=== PATIENT | male | born 1945 | race Caucasian/White ===

== ENCOUNTER 2022-04-20 01:16 | Inpatient (IN) | payer OTHER ==
[2022-04-20] MEDS ORDERED: PANTOPRAZOLE SODIUM 40 MG VIAL IVPUSH ONE (01:50)
[2022-04-20] MEDS ORDERED: PANTOPRAZOLE SODIUM 80 MG/200 ML BAG IVPB ONE (01:56)
[2022-04-20 02:16] LABS: BASO % 0.3 % (0-2.0); EOS % 0.1 % (0-4.5); HEMATOCRIT 35.4 % (35.4-49); HEMOGLOBIN 12.1 GM/dL (11.7-16.9); LYMPH % 9.8 % (8-40); MCH 33.7 pg (25.7-33.7); MEAN PLT VOLUME 10.1 fl (7.5-11.1); MONO % 2.9 % (3.8-10.2); NEUT % 86.9 % (42.8-82.8); PLATELET COUNT 210 10^3/uL (134-434); RBC 3.58 M/mm3 (4.00-5.60); RDW 13.6 % (11.9-15.9); WHITE BLOOD COUNT 12.8 K/mm3 (4.0-10.0)
[2022-04-20 02:49] LABS: CHLORIDE 100 mmol/L (98-107); SODIUM 136 mmol/L (136-145)
[2022-04-20 02:51] LABS: ALBUMIN 3.7 g/dl (3.4-5.0); CALCIUM 9.2 mg/dL (8.5-10.1); GLUCOSE,RANDOM 162 mg/dL (74-106)
[2022-04-20 02:52] LABS: BLOOD UREA NITROGEN 39.5 mg/dL (7-18)
[2022-04-20 02:54] LABS: CREATININE 1.1 mg/dL (0.55-1.3); SGOT/AST 20 U/L (15-37); SGPT/ALT 29 U/L (13-61)
[2022-04-20 02:55] LABS: INR 1.33 (0.83-1.09); PROTHROMBIN TIME (PATIENT) 15.3 SEC (9.7-13.0)
[2022-04-20 02:56] LABS: BILIRUBIN,TOTAL 1.3 mg/dL (0.2-1); TOT PROT 7.5 g/dl (6.4-8.2)
[2022-04-20 02:57] LABS: ALK PHOS 108 U/L (45-117); LACTIC ACID 2.1 mmol/L (0.4-2.0)
[2022-04-20 02:58] LABS: ACTIVATED PTT 30.4 SECONDS (25.2-36.5)
[2022-04-20] MEDS ORDERED: IBUPROFEN 400 MG TABLET (FP) PO ONE (03:04)
[2022-04-20 03:07] LABS: ANION GAP 10 MMOL/L (8-16); CO2 26 mmol/L (21-32)
[2022-04-20] MEDS ORDERED: PIPERACILLIN/TAZOB 4.5 GM 4.5 GM in DEXTROSE 5%-WATER 100 ML IVPB ONE (03:17)
[2022-04-20] MEDS ORDERED: VANCOMYCIN 1 GM in D5W (PRE-DOCKED) 1,000 MG/250 ML IVPB ONE (03:17)
[2022-04-20] MEDS ORDERED: SODIUM CHLORIDE 0.9% 500 ML INFUS.BAG IV ONE (03:17)
[2022-04-20] MEDS ORDERED: VANCOMYCIN/WATER FOR INJ (PEG) 1,000 MG/200 ML BAG IVPB ONE (03:49)
[2022-04-20] MEDS ORDERED: PIPERACILLIN/TAZOB 4.5 GM 4.5 GM/100 ML BAG IVPB ONE (04:49)
[2022-04-20] MEDS: SODIUM CHLORIDE 1,000 ML IV SCH (04:53)
[2022-04-20 05:48] LABS: MAGNESIUM 2.3 mg/dL (1.8-2.4)
[2022-04-20 05:52] LABS: PHOSPHOROUS 2.9 mg/dL (2.5-4.9)
[2022-04-20] MEDS ORDERED: clonazePAM 0.5 MG TABLET GT PRN (07:10)
[2022-04-20] MEDS: INSULIN SLIDING SCALE (NOVOLOG) 1 VIAL SQ SCH ×4 (07:56→22:19)
[2022-04-20] MEDS ORDERED: PIPERACILLIN/TAZOB 3.375 GM 3.375 GM in DEXTROSE 5%-WATER - 50 ML IVPB SCH (09:00)
[2022-04-20] MEDS ORDERED: PIPERACILLIN/TAZOB 3.375 GM 3.375 GM/50 ML BAG IVPB ONE (09:27)
[2022-04-20] MEDS ORDERED: ASCORBIC ACID 500 MG TABLET (FP) ONE (09:29)
[2022-04-20] MEDS ORDERED: clonazePAM 0.5 MG TABLET ONE (09:29)
[2022-04-20] MEDS ORDERED: CHOLECALCIFEROL (VIT D3) 1,000 UNIT (25 MCG) TABLET ONE (09:29)
[2022-04-20] MEDS: CHOLECALCIFEROL (VIT D SOLUTION) 400 UNIT/1 ML DROPS GT SCH (09:59)
[2022-04-20] MEDS: ASCORBIC ACID 500 MG TABLET (FP) PO SCH (09:59)
[2022-04-20] MEDS ORDERED: FOLIC ACID 1 MG TABLET (FP) GT SCH (10:00)
[2022-04-20] MEDS: CYANOCOBALAMIN 1,000 MCG TABLET (FP) GT SCH (10:46)
[2022-04-20] MEDS ORDERED: PANTOPRAZOLE SODIUM 40 MG VIAL ONE (11:50)
[2022-04-20] MEDS ORDERED: PANTOPRAZOLE SODIUM 40 MG VIAL IVPUSH SCH (12:00)
[2022-04-20 14:53] LABS: BILIRUBIN,DIRECT 0.3 mg/dL (0.0-0.2); IRON SERUM 22 ug/dL (50-175); TOTAL IRON BINDING CAPACITY 302 ug/dL (250-450)
[2022-04-20] MEDS: PIPERACILLIN/TAZOB 3.375 GM 3.375 GM in DEXTROSE 5%-WATER - 50 ML IVPB SCH ×2 (15:07→22:16)
[2022-04-20] MEDS ORDERED: VANCOMYCIN/WATER 1250 MG 1,250 MG/250 ML BAG IVPB SCH (16:00)
[2022-04-20] MEDS ORDERED: VANCOMYCIN/WATER 1,250 MG/250 ML BAG (RESTRICTED TO ID ONLY) IVPB SCH (18:00)
[2022-04-20] MEDS: PANTOPRAZOLE SODIUM 40 MG VIAL IVPUSH SCH (22:17)
[2022-04-21] MEDS: PIPERACILLIN/TAZOB 3.375 GM 3.375 GM in DEXTROSE 5%-WATER - 50 ML IVPB SCH ×4 (02:35→22:54)
[2022-04-21] MEDS ORDERED: VANCOMYCIN/WATER 1250 MG 1,250 MG/250 ML BAG IVPB SCH (04:00)
[2022-04-21] MEDS: SODIUM CHLORIDE 1,000 ML IV SCH (06:35)
[2022-04-21] MEDS: INSULIN SLIDING SCALE (NOVOLOG) 1 VIAL SQ SCH ×4 (06:52→22:55)
[2022-04-21 09:09] LABS: BASO % 0.4 % (0-2.0); HEMATOCRIT 28.2 % (35.4-49); HEMOGLOBIN 9.6 GM/dL (11.7-16.9); LYMPH % 9.1 % (8-40); MCH 34.5 pg (25.7-33.7); MEAN CELL VOLUME 101.4 fl (80-96); MEAN PLT VOLUME 9.5 fl (7.5-11.1); MONO % 4.3 % (3.8-10.2); NEUT % 85.2 % (42.8-82.8); PLATELET COUNT 168 10^3/uL (134-434); RBC 2.79 M/mm3 (4.00-5.60); RDW 13.4 % (11.9-15.9); WHITE BLOOD COUNT 12.3 K/mm3 (4.0-10.0)
[2022-04-21 09:19] LABS: INR 1.26 (0.83-1.09); PROTHROMBIN TIME (PATIENT) 14.5 SEC (9.7-13.0)
[2022-04-21 09:32] LABS: ALBUMIN 3.3 g/dl (3.4-5.0)
[2022-04-21 09:35] LABS: BILIRUBIN,DIRECT 0.5 mg/dL (0.0-0.2)
[2022-04-21 09:37] LABS: BILIRUBIN,TOTAL 1.8 mg/dL (0.2-1); TOT PROT 6.7 g/dl (6.4-8.2)
[2022-04-21 09:38] LABS: BLOOD UREA NITROGEN 25.7 mg/dL (7-18); CALCIUM 8.7 mg/dL (8.5-10.1)
[2022-04-21] MEDS: ASCORBIC ACID 500 MG TABLET (FP) PO SCH (10:49)
[2022-04-21] MEDS: PANTOPRAZOLE SODIUM 40 MG VIAL IVPUSH SCH (10:49)
[2022-04-21] MEDS: CYANOCOBALAMIN 1,000 MCG TABLET (FP) GT SCH (10:49)
[2022-04-21] MEDS: CHOLECALCIFEROL (VIT D SOLUTION) 400 UNIT/1 ML DROPS GT SCH (10:52)
[2022-04-21] MEDS ORDERED: FUROSEMIDE 40 MG/4 ML INJECTABLE VIAL IVPUSH ONE (11:30)
[2022-04-21] MEDS ORDERED: ACETAMINOPHEN 1000 MG/100 ML BAG IVPB ONE (18:23)
[2022-04-22] MEDS: PIPERACILLIN/TAZOB 3.375 GM 3.375 GM in DEXTROSE 5%-WATER - 50 ML IVPB SCH ×4 (02:26→22:09)
[2022-04-22] MEDS ORDERED: ACETAMINOPHEN 1000 MG/100 ML BAG IVPB ONE (05:42)
[2022-04-22] MEDS: INSULIN SLIDING SCALE (NOVOLOG) 1 VIAL SQ SCH ×4 (06:14→22:45)
[2022-04-22] MEDS: PANTOPRAZOLE SODIUM 40 MG VIAL IVPUSH SCH (12:47)
[2022-04-22] MEDS ORDERED: IRON SUCROSE INJECTION 200 MG in SODIUM CHLORIDE 90 ML IVPB ONE (13:00)
[2022-04-22] MEDS: POLYETHYLENE GLYCOL (HEALTHYLAX) 3350 17 GM PACKET GT SCH ×2 (13:19→22:10)
[2022-04-22] MEDS: ASCORBIC ACID 500 MG TABLET (FP) PO SCH (13:19)
[2022-04-22] MEDS: CYANOCOBALAMIN 1,000 MCG TABLET (FP) GT SCH (13:19)
[2022-04-22 13:20] LABS: BASO % 0.5 % (0-2.0); EOS % 2.3 % (0-4.5); HEMATOCRIT 29.3 % (35.4-49); HEMOGLOBIN 10.3 GM/dL (11.7-16.9); LYMPH % 13.5 % (8-40); MCH 34.9 pg (25.7-33.7); MCHC 35.1 g/dl (32.0-35.9); MEAN CELL VOLUME 99.4 fl (80-96); MEAN PLT VOLUME 8.7 fl (7.5-11.1); NEUT % 77.7 % (42.8-82.8); PLATELET COUNT 203 10^3/uL (134-434); RBC 2.95 M/mm3 (4.00-5.60); RDW 13.3 % (11.9-15.9); WHITE BLOOD COUNT 11.2 K/mm3 (4.0-10.0)
[2022-04-22 14:27] LABS: ALBUMIN 3.2 g/dl (3.4-5.0); BILIRUBIN,TOTAL 1.5 mg/dL (0.2-1); CALCIUM 8.9 mg/dL (8.5-10.1); CREATININE 1.1 mg/dL (0.55-1.3); TOT PROT 7.1 g/dl (6.4-8.2)
[2022-04-22] MEDS: CHOLECALCIFEROL (VIT D SOLUTION) 400 UNIT/1 ML DROPS GT SCH (14:51)
[2022-04-23] MEDS: PIPERACILLIN/TAZOB 3.375 GM 3.375 GM in DEXTROSE 5%-WATER - 50 ML IVPB SCH ×4 (02:36→20:41)
[2022-04-23] MEDS: POLYETHYLENE GLYCOL (HEALTHYLAX) 3350 17 GM PACKET GT SCH ×3 (05:31→21:47)
[2022-04-23] MEDS: INSULIN SLIDING SCALE (NOVOLOG) 1 VIAL SQ SCH ×4 (06:26→21:46)
[2022-04-23] MEDS: ASCORBIC ACID 500 MG TABLET (FP) PO SCH (10:00)
[2022-04-23] MEDS ORDERED: IRON SUCROSE INJECTION 200 MG in SODIUM CHLORIDE 90 ML IVPB ONE (10:00)
[2022-04-23] MEDS: CHOLECALCIFEROL (VIT D SOLUTION) 400 UNIT/1 ML DROPS GT SCH (10:00)
[2022-04-23] MEDS: FOLIC ACID 1 MG TABLET (FP) GT SCH (10:00)
[2022-04-23] MEDS: PANTOPRAZOLE SODIUM 40 MG VIAL IVPUSH SCH (10:02)
[2022-04-23] MEDS: CYANOCOBALAMIN 1,000 MCG TABLET (FP) GT SCH (10:05)
[2022-04-24] MEDS: PIPERACILLIN/TAZOB 3.375 GM 3.375 GM in DEXTROSE 5%-WATER - 50 ML IVPB SCH ×4 (02:45→21:19)
[2022-04-24] MEDS: POLYETHYLENE GLYCOL (HEALTHYLAX) 3350 17 GM PACKET GT SCH ×3 (05:30→21:20)
[2022-04-24] MEDS: INSULIN SLIDING SCALE (NOVOLOG) 1 VIAL SQ SCH ×4 (06:42→21:20)
[2022-04-24] MEDS ORDERED: IRON SUCROSE INJECTION 200 MG in SODIUM CHLORIDE 90 ML IVPB ONE (10:00)
[2022-04-24] MEDS: FOLIC ACID 1 MG TABLET (FP) GT SCH (10:18)
[2022-04-24] MEDS: ASCORBIC ACID 500 MG TABLET (FP) PO SCH (10:18)
[2022-04-24] MEDS: PANTOPRAZOLE SODIUM 40 MG VIAL IVPUSH SCH (10:18)
[2022-04-24] MEDS: CHOLECALCIFEROL (VIT D SOLUTION) 400 UNIT/1 ML DROPS GT SCH (10:18)
[2022-04-24] MEDS: CYANOCOBALAMIN 1,000 MCG TABLET (FP) GT SCH (10:18)
[2022-04-25] MEDS: PIPERACILLIN/TAZOB 3.375 GM 3.375 GM in DEXTROSE 5%-WATER - 50 ML IVPB SCH ×4 (02:15→20:47)
[2022-04-25] MEDS: POLYETHYLENE GLYCOL (HEALTHYLAX) 3350 17 GM PACKET GT SCH ×3 (06:28→22:48)
[2022-04-25] MEDS: INSULIN SLIDING SCALE (NOVOLOG) 1 VIAL SQ SCH ×4 (06:29→22:24)
[2022-04-25] MEDS: ASCORBIC ACID 500 MG TABLET (FP) PO SCH (09:08)
[2022-04-25] MEDS: CYANOCOBALAMIN 1,000 MCG TABLET (FP) GT SCH (09:08)
[2022-04-25] MEDS: FOLIC ACID 1 MG TABLET (FP) GT SCH (09:08)
[2022-04-25] MEDS: CHOLECALCIFEROL (VIT D SOLUTION) 400 UNIT/1 ML DROPS GT SCH (09:12)
[2022-04-25] MEDS: PANTOPRAZOLE SODIUM 40 MG VIAL IVPUSH SCH (10:01)
[2022-04-25 11:20] LABS: CALCIUM 8.5 mg/dL (8.5-10.1)
[2022-04-25 11:22] LABS: BLOOD UREA NITROGEN 24.7 mg/dL (7-18)
[2022-04-25 11:24] LABS: CREATININE 0.9 mg/dL (0.55-1.3)
[2022-04-25 11:26] LABS: BILIRUBIN,TOTAL 0.4 mg/dL (0.2-1)
[2022-04-25 12:42] LABS: HEMATOCRIT 28.7 % (35.4-49); HEMOGLOBIN 9.9 GM/dL (11.7-16.9); MCH 34.4 pg (25.7-33.7); MCHC 34.4 g/dl (32.0-35.9); MEAN PLT VOLUME 9.5 fl (7.5-11.1); PLATELET COUNT 230 10^3/uL (134-434); RBC 2.87 M/mm3 (4.00-5.60); RDW 13.3 % (11.9-15.9); WHITE BLOOD COUNT 7.8 K/mm3 (4.0-10.0)
[2022-04-25 13:17] LABS: ANISOCYTOSIS 1+; MACROCYTOSIS 1+
[2022-04-25 15:01] VITALS: BMI 21.9
[2022-04-26] MEDS: PIPERACILLIN/TAZOB 3.375 GM 3.375 GM in DEXTROSE 5%-WATER - 50 ML IVPB SCH ×4 (02:02→20:43)
[2022-04-26] MEDS: POLYETHYLENE GLYCOL (HEALTHYLAX) 3350 17 GM PACKET GT SCH ×3 (05:32→23:17)
[2022-04-26] MEDS: INSULIN SLIDING SCALE (NOVOLOG) 1 VIAL SQ SCH ×4 (06:28→23:17)
[2022-04-26] MEDS: CYANOCOBALAMIN 1,000 MCG TABLET (FP) GT SCH (09:13)
[2022-04-26] MEDS: ASCORBIC ACID 500 MG TABLET (FP) PO SCH (09:14)
[2022-04-26] MEDS: CHOLECALCIFEROL (VIT D SOLUTION) 400 UNIT/1 ML DROPS GT SCH (09:14)
[2022-04-26] MEDS: FOLIC ACID 1 MG TABLET (FP) GT SCH (09:14)
[2022-04-26] MEDS: PANTOPRAZOLE SODIUM 40 MG VIAL IVPUSH SCH (11:21)
[2022-04-27] MEDS: PIPERACILLIN/TAZOB 3.375 GM 3.375 GM in DEXTROSE 5%-WATER - 50 ML IVPB SCH ×2 (02:18→10:43)
[2022-04-27] MEDS: POLYETHYLENE GLYCOL (HEALTHYLAX) 3350 17 GM PACKET GT SCH ×4 (05:25→23:03)
[2022-04-27] MEDS: INSULIN SLIDING SCALE (NOVOLOG) 1 VIAL SQ SCH ×4 (06:24→23:04)
[2022-04-27] MEDS: CYANOCOBALAMIN 1,000 MCG TABLET (FP) GT SCH (10:49)
[2022-04-27] MEDS: FOLIC ACID 1 MG TABLET (FP) GT SCH (10:49)
[2022-04-27] MEDS: ASCORBIC ACID 500 MG TABLET (FP) PO SCH (10:49)
[2022-04-27] MEDS: CHOLECALCIFEROL (VIT D SOLUTION) 400 UNIT/1 ML DROPS GT SCH (10:51)
[2022-04-27] MEDS: FAMOTIDINE 40 MG/5 ML ORAL SUSPENSION GT SCH ×2 (15:24→23:04)
[2022-04-27] MEDS ORDERED: LORazepam 0.5 MG TABLET GT ONE (21:54)
[2022-04-28] MEDS: INSULIN SLIDING SCALE (NOVOLOG) 1 VIAL SQ SCH ×2 (06:27→12:07)
[2022-04-28] MEDS: POLYETHYLENE GLYCOL (HEALTHYLAX) 3350 17 GM PACKET GT SCH (06:27)
[2022-04-28] MEDS: CYANOCOBALAMIN 1,000 MCG TABLET (FP) GT SCH (09:17)
[2022-04-28] MEDS: ASCORBIC ACID 500 MG TABLET (FP) PO SCH (09:17)
[2022-04-28] MEDS: FOLIC ACID 1 MG TABLET (FP) GT SCH (09:18)
[2022-04-28] MEDS: CHOLECALCIFEROL (VIT D SOLUTION) 400 UNIT/1 ML DROPS GT SCH (09:18)
[2022-04-28] MEDS: FAMOTIDINE 40 MG/5 ML ORAL SUSPENSION GT SCH (09:18)
[2022-04-28 12:08] VITALS: BP 118/64; PULSE 60; RESP 16; TEMP 97.8
== END 2022-04-28 12:00 | DRG 207 ==
LOC: JER 01:16 → JERBED 06:17 → J5S 12:50
PROVIDERS: ADMIT Internal Medicine; ATTEND Family Medicine
PROC: 5A1955Z Respiratory Ventilation, Greater than 96 Consecutive Hours (ICD-10-PCS; principal; 2022-04-20)
DX: J18.9 Pneumonia, unspecified organism (principal); R53.2 Functional quadriplegia; J96.10 Chronic respiratory failure, unspecified whether with hypoxia or hypercapnia; K92.0 Hematemesis; E11.9 Type 2 diabetes mellitus without complications; I25.10 Atherosclerotic heart disease of native coronary artery without angina pectoris; I69.391 Dysphagia following cerebral infarction; R13.10 Dysphagia, unspecified; J44.9 Chronic obstructive pulmonary disease, unspecified; Z93.0 Tracheostomy status; Z93.1 Gastrostomy status; F03.90 Unspecified dementia, unspecified severity, without behavioral disturbance, psychotic disturbance, mood disturbance, and anxiety; G40.909 Epilepsy, unspecified, not intractable, without status epilepticus; F41.9 Anxiety disorder, unspecified; Z87.820 Personal history of traumatic brain injury; I11.0 Hypertensive heart disease with heart failure; I50.9 Heart failure, unspecified; K59.00 Constipation, unspecified; D53.9 Nutritional anemia, unspecified; D50.9 Iron deficiency anemia, unspecified
CPT/HCPCS: 0241U-QW; 36415; 71045-TC-FY; 74176-TC; 80048; 80053; 80076; 82248; 82553; 82607; 82728; 82746; 82962; 83540; 83550; 83605; 83735; 84100; 84484; 85025; 85610; 85730; 86704; 86850; 86900; 86901; 87040; 87070; 87186; 87205; 87340; 87517; 93005; 93010; 94002; 99285-25; C9803-CS; J1756; U0003; U0005

== ENCOUNTER 2022-06-17 09:56 | Inpatient (IN) | payer OTHER ==
[2022-06-17 10:26] VITALS: BMI 20.7
[2022-06-17 11:09] LABS: VENOUS BASE EXCESS 2.6 mmol/L (-2-2); VENOUS O2 SATURATION 34.2 % (70-80); VENOUS PCO2 49.2 mmHg (38-52); VENOUS PH 7.378 (7.310-7.410)
[2022-06-17 11:15] LABS: BASO % 0.5 % (0-2.0); EOS % 0.1 % (0-4.5); HEMATOCRIT 30.1 % (35.4-49); HEMOGLOBIN 10.1 GM/dL (11.7-16.9); MCH 33.6 pg (25.7-33.7); MCHC 33.4 g/dl (32.0-35.9); MEAN CELL VOLUME 100.8 fl (80-96); MEAN PLT VOLUME 8.5 fl (7.5-11.1); MONO % 10.7 % (3.8-10.2); NEUT % 67.7 % (42.8-82.8); PLATELET COUNT 281 10^3/uL (134-434); RBC 2.99 M/mm3 (4.00-5.60); RDW 14.3 % (11.9-15.9); WHITE BLOOD COUNT 7.5 K/mm3 (4.0-10.0)
[2022-06-17 11:25] LABS: EPI CELLS >36 /uL (0-25.1); HYALINE CASTS 9 /uL (0-3.1); PH,URINE 6.5 (5.0-8.0); URINE APPEARANCE CLOUDY; URINE BACTERIA 58 /uL (0-1359); URINE BILIRUBIN NEGATIVE (NEGATIVE); URINE COLOR YELLOW; URINE GLUCOSE (UA) NEGATIVE (NEGATIVE); URINE KETONE TRACE (NEGATIVE); URINE LEUK ESTERASE TRACE (NEGATIVE); URINE NITRITE NEGATIVE (NEGATIVE); URINE PROTEIN 3+ (NEGATIVE); URINE WBC 75 /uL (0-25.8)
[2022-06-17 11:28] LABS: INR 1.25 (0.83-1.09); PROTHROMBIN TIME (PATIENT) 14.4 SEC (9.7-13.0)
[2022-06-17 11:31] LABS: ACTIVATED PTT 31.3 SECONDS (25.2-36.5)
[2022-06-17 11:47] LABS: CALCIUM 8.6 mg/dL (8.5-10.1)
[2022-06-17 11:48] LABS: ALBUMIN 2.8 g/dl (3.4-5.0); BLOOD UREA NITROGEN 40.4 mg/dL (7-18)
[2022-06-17 11:51] LABS: CREATININE 1.4 mg/dL (0.55-1.3)
[2022-06-17 11:52] LABS: TOT PROT 7.9 g/dl (6.4-8.2)
[2022-06-17 11:53] LABS: BILIRUBIN,TOTAL 0.5 mg/dL (0.2-1)
[2022-06-17 12:20] LABS: URINE RBC 1898 /uL (0-23.9)
[2022-06-17] MEDS ORDERED: ACETAMINOPHEN INJECTION 100 ML IVPB ONE (14:23)
[2022-06-17] MEDS ORDERED: ACETAMINOPHEN 1000 MG/100 ML BAG IVPB ONE (14:31)
[2022-06-17] MEDS ORDERED: PANTOPRAZOLE SODIUM 40 MG/100 ML BAG IVPB ONE ×2 (17:15→21:08)
[2022-06-17] MEDS: SODIUM CHLORIDE 1,000 ML IV SCH (17:21)
[2022-06-17] MEDS: PANTOPRAZOLE SODIUM 40 MG VIAL IVPUSH SCH ×2 (17:21→21:19)
[2022-06-17] MEDS ORDERED: ACETAMINOPHEN 1000 MG/100 ML BAG IVPB PRN (18:34)
[2022-06-17] MEDS ORDERED: propRANOLol HCL 10 MG TABLET ONE (21:08)
[2022-06-17] MEDS: INSULIN SLIDING SCALE (NOVOLOG) 1 VIAL SQ SCH (21:24)
[2022-06-18] MEDS: propRANOLol HCL 10 MG TABLET GT SCH ×3 (06:33→21:06)
[2022-06-18 08:45] LABS: BASO % 0.5 % (0-2.0); EOS % 0.2 % (0-4.5); HEMATOCRIT 27.9 % (35.4-49); HEMOGLOBIN 9.6 GM/dL (11.7-16.9); LYMPH % 28.8 % (8-40); MCH 34.4 pg (25.7-33.7); MCHC 34.2 g/dl (32.0-35.9); MEAN CELL VOLUME 100.5 fl (80-96); MEAN PLT VOLUME 9.1 fl (7.5-11.1); MONO % 9.5 % (3.8-10.2); PLATELET COUNT 266 10^3/uL (134-434); RBC 2.78 M/mm3 (4.00-5.60); RDW 14.2 % (11.9-15.9); WHITE BLOOD COUNT 7.2 K/mm3 (4.0-10.0)
[2022-06-18] MEDS: INSULIN SLIDING SCALE (NOVOLOG) 1 VIAL SQ SCH ×4 (09:01→21:06)
[2022-06-18] MEDS: PANTOPRAZOLE SODIUM 40 MG VIAL IVPUSH SCH ×2 (09:07→21:06)
[2022-06-18] MEDS ORDERED: PANTOPRAZOLE SODIUM 40 MG VIAL ONE (09:08)
[2022-06-18 09:10] LABS: ALBUMIN 2.6 g/dl (3.4-5.0); CALCIUM 8.8 mg/dL (8.5-10.1)
[2022-06-18 09:11] LABS: BLOOD UREA NITROGEN 32.7 mg/dL (7-18); MAGNESIUM 2.4 mg/dL (1.8-2.4)
[2022-06-18 09:13] LABS: CREATININE 1.2 mg/dL (0.55-1.3)
[2022-06-18 09:14] LABS: PHOSPHOROUS 4.6 mg/dL (2.5-4.9)
[2022-06-18 09:15] LABS: BILIRUBIN,TOTAL 0.4 mg/dL (0.2-1); TOT PROT 7.4 g/dl (6.4-8.2)
[2022-06-18] MEDS ORDERED: propRANOLol HCL 10 MG TABLET ONE (13:46)
[2022-06-18] MEDS: SODIUM CHLORIDE 1,000 ML IV SCH (17:41)
[2022-06-19] MEDS: propRANOLol HCL 10 MG TABLET GT SCH ×3 (05:46→21:27)
[2022-06-19] MEDS: INSULIN SLIDING SCALE (NOVOLOG) 1 VIAL SQ SCH ×4 (06:52→21:27)
[2022-06-19 08:11] LABS: BASO % 0.4 % (0-2.0); EOS % 0.6 % (0-4.5); HEMATOCRIT 26.9 % (35.4-49); HEMOGLOBIN 9.1 GM/dL (11.7-16.9); LYMPH % 30.2 % (8-40); MCH 33.9 pg (25.7-33.7); MCHC 33.8 g/dl (32.0-35.9); MEAN CELL VOLUME 100.2 fl (80-96); MEAN PLT VOLUME 8.4 fl (7.5-11.1); MONO % 8.4 % (3.8-10.2); NEUT % 60.4 % (42.8-82.8); PLATELET COUNT 232 10^3/uL (134-434); RBC 2.68 M/mm3 (4.00-5.60); RDW 14.2 % (11.9-15.9); WHITE BLOOD COUNT 4.5 K/mm3 (4.0-10.0)
[2022-06-19 08:25] LABS: CALCIUM 8.6 mg/dL (8.5-10.1)
[2022-06-19 08:26] LABS: ALBUMIN 2.6 g/dl (3.4-5.0)
[2022-06-19 08:31] LABS: BILIRUBIN,TOTAL 0.4 mg/dL (0.2-1)
[2022-06-19] MEDS: PANTOPRAZOLE SODIUM 40 MG VIAL IVPUSH SCH ×2 (09:30→21:27)
[2022-06-19] MEDS: ERTAPENEM SODIUM 1 GM in SODIUM CHLORIDE 50 ML IVPB SCH (14:32)
[2022-06-19] MEDS ORDERED: REMDESIVIR 200 MG in SODIUM CHLORIDE 250 ML IVPB ONE (15:00)
[2022-06-19] MEDS: SODIUM CHLORIDE 1,000 ML IV SCH (16:46)
[2022-06-19] MEDS: POLYETHYLENE GLYCOL (HEALTHYLAX) 3350 17 GM PACKET PEG SCH (21:26)
[2022-06-20] MEDS: INSULIN SLIDING SCALE (NOVOLOG) 1 VIAL SQ SCH ×4 (06:06→21:18)
[2022-06-20] MEDS: propRANOLol HCL 10 MG TABLET GT SCH ×3 (06:06→21:18)
[2022-06-20] MEDS: POLYETHYLENE GLYCOL (HEALTHYLAX) 3350 17 GM PACKET PEG SCH ×2 (10:15→21:18)
[2022-06-20] MEDS: PANTOPRAZOLE SODIUM 40 MG VIAL IVPUSH SCH ×2 (10:15→21:19)
[2022-06-20] MEDS: ERTAPENEM SODIUM 1 GM in SODIUM CHLORIDE 50 ML IVPB SCH (10:16)
[2022-06-20] MEDS: REMDESIVIR 100 MG in SODIUM CHLORIDE 250 ML IVPB SCH (15:14)
[2022-06-20] MEDS ORDERED: ACETAMINOPHEN 1000 MG/100 ML BAG IVPB PRN (17:59)
[2022-06-20] MEDS: SODIUM CHLORIDE 1,000 ML IV SCH (19:42)
[2022-06-21] MEDS: INSULIN SLIDING SCALE (NOVOLOG) 1 VIAL SQ SCH ×4 (05:59→21:55)
[2022-06-21] MEDS: propRANOLol HCL 10 MG TABLET GT SCH ×3 (05:59→21:54)
[2022-06-21] MEDS: PANTOPRAZOLE SODIUM 40 MG VIAL IVPUSH SCH (09:08)
[2022-06-21] MEDS: POLYETHYLENE GLYCOL (HEALTHYLAX) 3350 17 GM PACKET PEG SCH ×2 (09:08→21:54)
[2022-06-21] MEDS: ERTAPENEM SODIUM 1 GM in SODIUM CHLORIDE 50 ML IVPB SCH (10:08)
[2022-06-21] MEDS: REMDESIVIR 100 MG in SODIUM CHLORIDE 250 ML IVPB SCH (14:16)
[2022-06-21] MEDS: SODIUM CHLORIDE 1,000 ML IV SCH (23:37)
[2022-06-22] MEDS: INSULIN SLIDING SCALE (NOVOLOG) 1 VIAL SQ SCH ×4 (06:33→23:05)
[2022-06-22] MEDS: propRANOLol HCL 10 MG TABLET GT SCH ×3 (06:56→22:00)
[2022-06-22] MEDS: POLYETHYLENE GLYCOL (HEALTHYLAX) 3350 17 GM PACKET PEG SCH ×2 (09:47→22:00)
[2022-06-22] MEDS: PANTOPRAZOLE SODIUM 40 MG VIAL IVPUSH SCH (09:47)
[2022-06-22] MEDS ORDERED: INSULIN (NOVOLOG) ASPART 100 UNITS/ML 10ML VIAL ONE (10:36)
[2022-06-22] MEDS: ERTAPENEM SODIUM 1 GM in SODIUM CHLORIDE 50 ML IVPB SCH (12:35)
[2022-06-22] MEDS: SODIUM CHLORIDE 1,000 ML IV SCH (12:35)
[2022-06-22 16:42] LABS: BASO % 0.2 % (0-2.0); EOS % 2.2 % (0-4.5); HEMATOCRIT 25.4 % (35.4-49); HEMOGLOBIN 8.6 GM/dL (11.7-16.9); LYMPH % 35.9 % (8-40); MCH 33.3 pg (25.7-33.7); MCHC 33.8 g/dl (32.0-35.9); MEAN CELL VOLUME 98.5 fl (80-96); MEAN PLT VOLUME 8.2 fl (7.5-11.1); MONO % 6.5 % (3.8-10.2); NEUT % 55.2 % (42.8-82.8); PLATELET COUNT 228 10^3/uL (134-434); RBC 2.58 M/mm3 (4.00-5.60); RDW 13.9 % (11.9-15.9); WHITE BLOOD COUNT 5.6 K/mm3 (4.0-10.0)
[2022-06-22 17:11] LABS: CALCIUM 7.8 mg/dL (8.5-10.1)
[2022-06-22 17:12] LABS: BLOOD UREA NITROGEN 18.4 mg/dL (7-18)
[2022-06-22 17:15] LABS: CREATININE 0.7 mg/dL (0.55-1.3)
[2022-06-23] MEDS: INSULIN SLIDING SCALE (NOVOLOG) 1 VIAL SQ SCH ×4 (06:56→23:26)
[2022-06-23] MEDS: propRANOLol HCL 10 MG TABLET GT SCH ×3 (06:56→22:00)
[2022-06-23 07:12] LABS: BASO % 0.3 % (0-2.0); EOS % 1.9 % (0-4.5); HEMATOCRIT 26.2 % (35.4-49); HEMOGLOBIN 8.8 GM/dL (11.7-16.9); LYMPH % 29.7 % (8-40); MCHC 33.7 g/dl (32.0-35.9); MEAN CELL VOLUME 98.1 fl (80-96); MONO % 5.8 % (3.8-10.2); NEUT % 62.3 % (42.8-82.8); PLATELET COUNT 262 10^3/uL (134-434); RBC 2.67 M/mm3 (4.00-5.60); RDW 13.9 % (11.9-15.9); WHITE BLOOD COUNT 6.7 K/mm3 (4.0-10.0)
[2022-06-23 07:37] LABS: BLOOD UREA NITROGEN 13.9 mg/dL (7-18); CALCIUM 8.2 mg/dL (8.5-10.1)
[2022-06-23 07:40] LABS: PHOSPHOROUS 3.1 mg/dL (2.5-4.9)
[2022-06-23 07:41] LABS: CREATININE 0.7 mg/dL (0.55-1.3)
[2022-06-23] MEDS: POLYETHYLENE GLYCOL (HEALTHYLAX) 3350 17 GM PACKET PEG SCH ×2 (09:18→22:00)
[2022-06-23] MEDS: PANTOPRAZOLE SODIUM 40 MG VIAL IVPUSH SCH (09:18)
[2022-06-23] MEDS: ERTAPENEM SODIUM 1 GM in SODIUM CHLORIDE 50 ML IVPB SCH (09:18)
[2022-06-23] MEDS: SODIUM CHLORIDE 1,000 ML IV SCH (17:00)
[2022-06-24] MEDS: propRANOLol HCL 10 MG TABLET GT SCH ×3 (06:22→22:00)
[2022-06-24] MEDS: INSULIN SLIDING SCALE (NOVOLOG) 1 VIAL SQ SCH ×4 (06:23→22:22)
[2022-06-24] MEDS: POLYETHYLENE GLYCOL (HEALTHYLAX) 3350 17 GM PACKET PEG SCH ×3 (07:08→22:23)
[2022-06-24 07:21] LABS: BASO % 0.3 % (0-2.0); EOS % 2.1 % (0-4.5); HEMOGLOBIN 9.1 GM/dL (11.7-16.9); MCH 33.4 pg (25.7-33.7); MCHC 33.7 g/dl (32.0-35.9); MEAN CELL VOLUME 98.9 fl (80-96); MEAN PLT VOLUME 8.5 fl (7.5-11.1); MONO % 4.4 % (3.8-10.2); NEUT % 69.2 % (42.8-82.8); PLATELET COUNT 291 10^3/uL (134-434); RBC 2.73 M/mm3 (4.00-5.60); RDW 13.8 % (11.9-15.9); WHITE BLOOD COUNT 6.5 K/mm3 (4.0-10.0)
[2022-06-24 07:41] LABS: BLOOD UREA NITROGEN 12.2 mg/dL (7-18); CALCIUM 8.1 mg/dL (8.5-10.1); MAGNESIUM 2.1 mg/dL (1.8-2.4)
[2022-06-24 07:42] LABS: ALBUMIN 2.6 g/dl (3.4-5.0)
[2022-06-24 07:45] LABS: CREATININE 0.8 mg/dL (0.55-1.3)
[2022-06-24 07:46] LABS: BILIRUBIN,TOTAL 0.4 mg/dL (0.2-1)
[2022-06-24] MEDS: AMINO ACIDS/PROTEIN HYDROLYS 30 ML LIQUID.PKT PO SCH (08:40)
[2022-06-24] MEDS: ERTAPENEM SODIUM 1 GM in SODIUM CHLORIDE 50 ML IVPB SCH (09:50)
[2022-06-24] MEDS: PANTOPRAZOLE SODIUM 40 MG VIAL IVPUSH SCH (09:50)
[2022-06-24] MEDS: ASCORBIC ACID 500 MG TABLET (FP) PO SCH (09:50)
[2022-06-25] MEDS: propRANOLol HCL 10 MG TABLET GT SCH ×3 (05:57→22:00)
[2022-06-25] MEDS: INSULIN SLIDING SCALE (NOVOLOG) 1 VIAL SQ SCH ×4 (06:05→22:06)
[2022-06-25 07:32] LABS: BASO % 0.8 % (0-2.0); EOS % 3.1 % (0-4.5); HEMATOCRIT 28.2 % (35.4-49); HEMOGLOBIN 9.6 GM/dL (11.7-16.9); MCH 34.2 pg (25.7-33.7); MCHC 33.9 g/dl (32.0-35.9); MEAN CELL VOLUME 100.6 fl (80-96); MEAN PLT VOLUME 9.6 fl (7.5-11.1); MONO % 7.4 % (3.8-10.2); NEUT % 63.7 % (42.8-82.8); PLATELET COUNT 192 10^3/uL (134-434); WHITE BLOOD COUNT 5.6 K/mm3 (4.0-10.0)
[2022-06-25 07:52] LABS: ALBUMIN 2.4 g/dl (3.4-5.0); CALCIUM 8.3 mg/dL (8.5-10.1)
[2022-06-25 07:53] LABS: BLOOD UREA NITROGEN 12.4 mg/dL (7-18)
[2022-06-25 07:55] LABS: CREATININE 0.7 mg/dL (0.55-1.3); PHOSPHOROUS 3.1 mg/dL (2.5-4.9)
[2022-06-25 07:57] LABS: BILIRUBIN,TOTAL 0.4 mg/dL (0.2-1); TOT PROT 6.8 g/dl (6.4-8.2)
[2022-06-25] MEDS: ERTAPENEM SODIUM 1 GM in SODIUM CHLORIDE 50 ML IVPB SCH (10:25)
[2022-06-25] MEDS: ASCORBIC ACID 500 MG TABLET (FP) PO SCH (10:25)
[2022-06-25] MEDS: POLYETHYLENE GLYCOL (HEALTHYLAX) 3350 17 GM PACKET PEG SCH ×2 (10:25→22:00)
[2022-06-25] MEDS: AMINO ACIDS/PROTEIN HYDROLYS 30 ML LIQUID.PKT PO SCH (10:26)
[2022-06-25] MEDS: PANTOPRAZOLE SODIUM 40 MG VIAL IVPUSH SCH (10:26)
[2022-06-25] MEDS: SODIUM CHLORIDE 1,000 ML IV SCH (10:27)
[2022-06-25 21:59] VITALS: BP 133/72; PULSE 89; TEMP 97.1
[2022-06-25 22:09] VITALS: RESP 12
== END 2022-06-25 23:00 | DRG 207 ==
LOC: JER 09:56 → JERBED 12:08 → OBSVTOIN 16:55 → J2W 06-18 17:34 → J5S 06-25 08:41
PROVIDERS: ADMIT Internal Medicine
PROC: 5A1955Z Respiratory Ventilation, Greater than 96 Consecutive Hours (ICD-10-PCS; principal; 2022-06-17)
PROC: XW033E5 Introduction of Remdesivir Anti-infective into Peripheral Vein, Percutaneous Approach, New Technology Group 5 (ICD-10-PCS; 2022-06-17)
DX: U07.1 COVID-19 (principal); J96.21 Acute and chronic respiratory failure with hypoxia; G91.2 (Idiopathic) normal pressure hydrocephalus; K92.2 Gastrointestinal hemorrhage, unspecified; J44.1 Chronic obstructive pulmonary disease with (acute) exacerbation; N39.0 Urinary tract infection, site not specified; Z99.11 Dependence on respirator [ventilator] status; Z16.12 Extended spectrum beta lactamase (ESBL) resistance; Z93.1 Gastrostomy status; Z93.0 Tracheostomy status; I25.10 Atherosclerotic heart disease of native coronary artery without angina pectoris; I10 Essential (primary) hypertension; E11.9 Type 2 diabetes mellitus without complications; L89.612 Pressure ulcer of right heel, stage 2; B96.20 Unspecified Escherichia coli [E. coli] as the cause of diseases classified elsewhere
CPT/HCPCS: 0241U-QW; 36415; 71045-TC-FY; 74174-TC; 80048; 80053; 81003; 82272; 82728; 82803; 82962; 83540; 83550; 83605; 83735; 84100; 84484; 85025; 85045; 85610; 85730; 86850; 86900; 86901; 87040; 87086; 87186; 93005; 93010; 94002; 99285-25; C9399; C9803-CS; G0378; U0003; U0005

== ENCOUNTER 2022-08-08 09:30 | Observation (INO) | payer OTHER ==
[2022-08-08 09:45] VITALS: BMI 20.5
[2022-08-08] MEDS ORDERED: VANCOMYCIN 1 GM in D5W (PRE-DOCKED) 1,000 MG/250 ML IVPB ONE (10:26)
[2022-08-08] MEDS ORDERED: PIPERACILLIN/TAZOB 2.25 GM 2.25 GM in DEXTROSE 5%-WATER - 50 ML IVPB ONE (10:26)
[2022-08-08] MEDS ORDERED: VANCOMYCIN/WATER FOR INJ (PEG) 1,000 MG/200 ML BAG IVPB ONE (10:53)
[2022-08-08] MEDS ORDERED: PIPERACILLIN/TAZOB 2.25 GM 2.25 GM/50 ML BAG IVPB ONE (10:53)
[2022-08-08 11:15] LABS: BASO % 0.3 % (0-2.0); EOS % 1.1 % (0-4.5); HEMATOCRIT 33.4 % (35.4-49); HEMOGLOBIN 11.2 GM/dL (11.7-16.9); LYMPH % 13.4 % (8-40); MCH 33.4 pg (25.7-33.7); MCHC 33.6 g/dl (32.0-35.9); MEAN CELL VOLUME 99.4 fl (80-96); MEAN PLT VOLUME 9.2 fl (7.5-11.1); MONO % 3.8 % (3.8-10.2); NEUT % 81.4 % (42.8-82.8); PLATELET COUNT 284 10^3/uL (134-434); RBC 3.36 M/mm3 (4.00-5.60); RDW 15.1 % (11.9-15.9); WHITE BLOOD COUNT 9.3 K/mm3 (4.0-10.0)
[2022-08-08 11:21] LABS: INR 1.15 (0.83-1.09); PROTHROMBIN TIME (PATIENT) 13.3 SEC (9.7-13.0)
[2022-08-08 11:24] LABS: ACTIVATED PTT 34.9 SECONDS (25.2-36.5)
[2022-08-08 11:41] LABS: CALCIUM 9.6 mg/dL (8.5-10.1)
[2022-08-08 11:43] LABS: ALBUMIN 3.4 g/dl (3.4-5.0); BLOOD UREA NITROGEN 47.8 mg/dL (7-18); CO2 31 mmol/L (21-32); GLUCOSE,RANDOM 123 mg/dL (74-106)
[2022-08-08 11:45] LABS: CREATININE 1.3 mg/dL (0.55-1.3); SGOT/AST 104 U/L (15-37)
[2022-08-08 11:47] LABS: BILIRUBIN,TOTAL 0.6 mg/dL (0.2-1); TOT PROT 8.8 g/dl (6.4-8.2)
[2022-08-08 11:49] LABS: ALK PHOS 105 U/L (45-117)
[2022-08-08 12:47] LABS: ANION GAP 1 MMOL/L (8-16); CHLORIDE 102 mmol/L (98-107); SGPT/ALT 32 U/L (13-61); SODIUM 134 mmol/L (136-145)
[2022-08-08] MEDS ORDERED: dilTIAZem HCL 30 MG TABLET PO ONE (14:05)
[2022-08-08] MEDS ORDERED: dilTIAZem HCL 50 MG/10 ML - 10 ML VIAL IVPUSH ONE (14:05)
[2022-08-08] MEDS ORDERED: dilTIAZem HCL 60 MG TABLET PO ONE (14:05)
[2022-08-08] MEDS ORDERED: DEXTROSE 5%-LACTATED RINGERS 1,000 ML IV SCH (16:45)
[2022-08-08] MEDS ORDERED: CEFEPIME 1 GM/100 ML BAG IVPB ONE (16:50)
[2022-08-08] MEDS: CEFEPIME 1 GM in DEXTROSE 5%-WATER 100 ML IVPB SCH (17:17)
[2022-08-08] MEDS ORDERED: CEFEPIME 1 GM in DEXTROSE 5%-WATER 100 ML IVPB SCH (18:00)
[2022-08-08] MEDS ORDERED: HEPARIN NA (PORCINE) 5,000 UNITS/ML 1ML VIAL ONE (22:24)
[2022-08-08] MEDS ORDERED: DOXYCYCLINE HYCLATE 100 MG VIAL ONE (22:24)
[2022-08-08] MEDS: DOXYCYCLINE INJECTION 100 MG in DEXTROSE 5%-WATER 100 ML IVPB SCH (22:34)
[2022-08-08] MEDS: HEPARIN NA (PORCINE) 5,000 UNITS/ML 1ML VIAL SQ SCH (22:34)
[2022-08-09] MEDS: CEFEPIME 1 GM in DEXTROSE 5%-WATER 100 ML IVPB SCH ×2 (02:45→10:37)
[2022-08-09] MEDS ORDERED: CEFEPIME 1 GM/100 ML BAG IVPB ONE ×2 (03:46→09:12)
[2022-08-09 07:12] LABS: HEMATOCRIT 29.9 % (35.4-49); HEMOGLOBIN 10.3 GM/dL (11.7-16.9); LYMPH % 33.8 % (8-40); MCH 35.1 pg (25.7-33.7); MCHC 34.3 g/dl (32.0-35.9); MEAN CELL VOLUME 102.4 fl (80-96); MEAN PLT VOLUME 8.8 fl (7.5-11.1); MONO % 5.2 % (3.8-10.2); PLATELET COUNT 251 10^3/uL (134-434); RBC 2.92 M/mm3 (4.00-5.60); RDW 14.9 % (11.9-15.9); WHITE BLOOD COUNT 4.9 K/mm3 (4.0-10.0)
[2022-08-09 07:14] LABS: CALCIUM 9.7 mg/dL (8.5-10.1)
[2022-08-09 07:15] LABS: BLOOD UREA NITROGEN 37.9 mg/dL (7-18)
[2022-08-09 07:18] LABS: CREATININE 1.2 mg/dL (0.55-1.3)
[2022-08-09] MEDS ORDERED: HEPARIN NA (PORCINE) 5,000 UNITS/ML 1ML VIAL ONE (08:51)
[2022-08-09] MEDS ORDERED: DOXYCYCLINE HYCLATE 100 MG VIAL ONE (08:52)
[2022-08-09] MEDS ORDERED: PANTOPRAZOLE SODIUM 40 MG VIAL ONE (08:52)
[2022-08-09] MEDS: HEPARIN NA (PORCINE) 5,000 UNITS/ML 1ML VIAL SQ SCH (09:19)
[2022-08-09] MEDS: DOXYCYCLINE INJECTION 100 MG in DEXTROSE 5%-WATER 100 ML IVPB SCH (09:47)
[2022-08-09] MEDS ORDERED: PANTOPRAZOLE SODIUM 40 MG VIAL IVPUSH SCH (10:00)
[2022-08-09 13:54] VITALS: BP 127/78; PULSE 69; RESP 20; TEMP 98
== END 2022-08-09 15:00 ==
LOC: JER 09:30 → JERBED 14:48 → INTOOBSV 14:48
PROVIDERS: ADMIT Internal Medicine; ATTEND Internal Medicine
PROC: 0DP67UZ Removal of Feeding Device from Stomach, Via Natural or Artificial Opening (ICD-10-PCS; principal; 2022-08-08)
PROC: 0DH63UZ Insertion of Feeding Device into Stomach, Percutaneous Approach (ICD-10-PCS; 2022-08-08)
PROC: 3E03329 Introduction of Other Anti-infective into Peripheral Vein, Percutaneous Approach (ICD-10-PCS; 2022-08-08)
PROC: 3E033GC Introduction of Other Therapeutic Substance into Peripheral Vein, Percutaneous Approach (ICD-10-PCS; 2022-08-08)
PROC: 3E023GC Introduction of Other Therapeutic Substance into Muscle, Percutaneous Approach (ICD-10-PCS; 2022-08-08)
PROC: 3E033GC Introduction of Other Therapeutic Substance into Peripheral Vein, Percutaneous Approach (ICD-10-PCS; 2022-08-08)
DX: K94.23 Gastrostomy malfunction (principal); J18.9 Pneumonia, unspecified organism; Z87.19 Personal history of other diseases of the digestive system; I25.10 Atherosclerotic heart disease of native coronary artery without angina pectoris; I11.9 Hypertensive heart disease without heart failure; I69.891 Dysphagia following other cerebrovascular disease; R13.10 Dysphagia, unspecified; J44.9 Chronic obstructive pulmonary disease, unspecified; J96.21 Acute and chronic respiratory failure with hypoxia; Y99.8 Other external cause status; D64.9 Anemia, unspecified; E78.00 Pure hypercholesterolemia, unspecified; F03.90 Unspecified dementia, unspecified severity, without behavioral disturbance, psychotic disturbance, mood disturbance, and anxiety; L03.818 Cellulitis of other sites; J96.90 Respiratory failure, unspecified, unspecified whether with hypoxia or hypercapnia; Z88.8 Allergy status to other drugs, medicaments and biological substances; Z88.0 Allergy status to penicillin
CPT/HCPCS: 36415; 43762; 71045-TC-FY; 74177-TC; 80048; 80053; 83605; 84132; 85025; 85610; 85730; 86850; 86900; 86901; 87040; 93005; 93010; 94002; 96365; 96367; 96372; 96375; 99285-25; C9803-CS; G0378; J1644; U0003; U0005

== ENCOUNTER 2022-08-10 05:47 | Emergency (ER) | payer OTHER ==
[2022-08-10 06:01] VITALS: BP 116/84; TEMP 97.7; BMI 20.6
[2022-08-10 09:30] VITALS: PULSE 67
[2022-08-10 14:44] VITALS: RESP 18
== END 2022-08-10 13:21 | disposition home or self-care (01) ==
LOC: JER 05:47
DX: Z43.1 Encounter for attention to gastrostomy (principal)
CPT/HCPCS: 74018-TC-FY; 99283-25

== ENCOUNTER 2023-03-14 09:01 | Inpatient (IN) | payer OTHER ==
[2023-03-14 09:46] VITALS: BMI 20.5
[2023-03-14 09:51] LABS: ARTERIAL BLD GAS O2 SATURATION 99.6 % (95-98); ARTERIAL BLOOD GAS BASE EXCESS 6.8 mmol/L (-2-2); ARTERIAL BLOOD GAS PO2 374.6 mmHg (80-100)
[2023-03-14 09:56] LABS: ALLENS TEST POSITIVE
[2023-03-14 09:57] LABS: VENT MODE AC; VENT RATE 18
[2023-03-14 09:59] LABS: ARTERIAL BLOOD GAS pH 7.141 (7.350-7.450)
[2023-03-14] MEDS ORDERED: methylPREDNISolone NA SUCC 125 MG/2 ML VIAL IVPB ONE (10:08)
[2023-03-14] MEDS ORDERED: ALBUTEROL SO4 2.5/IPRATROPIUM 0.5 INH SOL 3 ML VIAL.NEB. NEB ONE ×2 (10:08→10:12)
[2023-03-14] MEDS ORDERED: methylPREDNISolone NA SUCC 125 MG/2 ML VIAL ONE (10:12)
[2023-03-14 10:31] LABS: LACTIC ACID 2.2 mmol/L (0.4-2.0)
[2023-03-14] MEDS ORDERED: LACTATED RINGERS SOLUTION 1000 ML INFUS.BAG IV ONE (10:55)
[2023-03-14 11:47] LABS: INR 1.14 (0.83-1.09); PROTHROMBIN TIME (PATIENT) 13.2 SEC (9.7-13.0)
[2023-03-14 11:48] LABS: HEMATOCRIT 29.7 % (35.4-49); HEMOGLOBIN 9.2 GM/dL (11.7-16.9); MCH 32.7 pg (25.7-33.7); MCHC 31.1 g/dl (32.0-35.9); MEAN CELL VOLUME 105.3 fl (80-96); MEAN PLT VOLUME 9.7 fl (7.5-11.1); PLATELET COUNT 526 10^3/uL (134-434); RBC 2.82 M/mm3 (4.00-5.60); RDW 13.7 % (11.9-15.9); WHITE BLOOD COUNT 24.8 K/mm3 (4.0-10.0)
[2023-03-14 11:50] LABS: ACTIVATED PTT 32.9 SECONDS (25.2-36.5)
[2023-03-14 11:57] LABS: ARTERIAL BLD GAS O2 SATURATION 96.5 % (95-98); ARTERIAL BLOOD GAS PO2 109.4 mmHg (80-100); ARTERIAL BLOOD GAS pH 7.202 (7.350-7.450)
[2023-03-14 12:04] LABS: ALLENS TEST POSITIVE
[2023-03-14 12:13] LABS: ANISOCYTOSIS 1+
[2023-03-14 12:14] LABS: MACROCYTOSIS 2+
[2023-03-14 13:53] LABS: LACTIC ACID 2.2 mmol/L (0.4-2.0)
[2023-03-14 13:55] LABS: POTASSIUM 5.3 mmol/L (3.5-5.1)
[2023-03-14 13:58] LABS: ALBUMIN 2.8 g/dl (3.4-5.0); BLOOD UREA NITROGEN 63.5 mg/dL (7-18)
[2023-03-14 14:01] LABS: CREATININE 1.7 mg/dL (0.55-1.3)
[2023-03-14 14:02] LABS: BILIRUBIN,TOTAL 0.4 mg/dL (0.2-1)
[2023-03-14 14:03] LABS: TOT PROT 9.1 g/dl (6.4-8.2)
[2023-03-14] MEDS ORDERED: CEFEPIME HCL 2 GM VIAL (RESTRICTED TO ID) IVPB SCH ×2 (15:14→15:15)
[2023-03-14] MEDS ORDERED: SODIUM CHLORIDE 0.45% 1,000 ML IV SCH (15:15)
[2023-03-14] MEDS ORDERED: SODIUM CHLORIDE 1,000 ML IV SCH (15:15)
[2023-03-14] MEDS ORDERED: PIPERACILLIN/TAZOB 2.25 GM 2.25 GM in DEXTROSE 5%-WATER - 50 ML IVPB SCH (15:15)
[2023-03-14 15:41] LABS: ARTERIAL BLOOD GAS BASE EXCESS 8.7 mmol/L (-2-2); ARTERIAL BLOOD GAS PO2 142.8 mmHg (80-100); ARTERIAL BLOOD GAS pH 7.523 (7.350-7.450)
[2023-03-14] MEDS: ALBUTEROL SO4 2.5/IPRATROPIUM 0.5 INH SOL 3 ML VIAL.NEB. NEB SCH ×2 (16:01→20:15)
[2023-03-14] MEDS: methylPREDNISolone NA SUCC 40 MG/1 ML VIAL IVPUSH SCH (18:21)
[2023-03-14] MEDS: CEFEPIME 2 GM in DEXTROSE 5%-WATER 100 ML IVPB SCH (18:21)
[2023-03-14 18:53] LABS: EPI CELLS 17 /uL (0-25.1); HYALINE CASTS 2 /uL (0-3.1); URINE APPEARANCE CLEAR; URINE BACTERIA 11 /uL (0-1359); URINE BILIRUBIN NEGATIVE (NEGATIVE); URINE COLOR YELLOW; URINE GLUCOSE (UA) NEGATIVE (NEGATIVE); URINE KETONE NEGATIVE (NEGATIVE); URINE LEUK ESTERASE NEGATIVE (NEGATIVE); URINE NITRITE NEGATIVE (NEGATIVE); URINE PROTEIN 1+ (NEGATIVE); URINE RBC 123 /uL (0-23.9); URINE WBC 14 /uL (0-25.8)
[2023-03-14] MEDS: SENNOSIDES 8.8 MG/5 ML SYRUP GT SCH (22:35)
[2023-03-14] MEDS: DOXYCYCLINE INJECTION 100 MG in DEXTROSE 5%-WATER 100 ML IVPB SCH (22:35)
[2023-03-14] MEDS: POLYETHYLENE GLYCOL (HEALTHYLAX) 3350 17 GM PACKET GT SCH (22:35)
[2023-03-14] MEDS: INSULIN SLIDING SCALE (NOVOLOG) 1 VIAL SQ SCH (22:36)
[2023-03-15] MEDS: methylPREDNISolone NA SUCC 40 MG/1 ML VIAL IVPUSH SCH ×3 (02:02→17:53)
[2023-03-15] MEDS: CEFEPIME 2 GM in DEXTROSE 5%-WATER 100 ML IVPB SCH ×3 (02:45→17:53)
[2023-03-15] MEDS ORDERED: CEFEPIME HCL 2 GM VIAL (RESTRICTED TO ID) IVPB SCH (03:00)
[2023-03-15] MEDS: INSULIN SLIDING SCALE (NOVOLOG) 1 VIAL SQ SCH ×4 (06:01→21:22)
[2023-03-15 06:38] LABS: ARTERIAL BLOOD GAS BASE EXCESS 8.5 mmol/L (-2-2); ARTERIAL BLOOD GAS PO2 134.5 mmHg (80-100); ARTERIAL BLOOD GAS pH 7.533 (7.350-7.450)
[2023-03-15 06:54] LABS: ALLENS TEST POSITIVE; VENT MODE A/C; VENT RATE 18
[2023-03-15] MEDS ORDERED: PATIENT'S OWN MEDICATION (NON-FORMULARY) (Omeprazole 20 MG Capsule.Dr) GT SCH (07:00)
[2023-03-15 07:04] LABS: BASO % 0.1 % (0-2.0); HEMATOCRIT 21.1 % (35.4-49); LYMPH % 9.1 % (8-40); MCHC 33.3 g/dl (32.0-35.9); MEAN CELL VOLUME 101.9 fl (80-96); MEAN PLT VOLUME 8.4 fl (7.5-11.1); MONO % 2.5 % (3.8-10.2); NEUT % 88.3 % (42.8-82.8); PLATELET COUNT 349 10^3/uL (134-434); RBC 2.07 M/mm3 (4.00-5.60); RDW 13.1 % (11.9-15.9); WHITE BLOOD COUNT 11.7 K/mm3 (4.0-10.0)
[2023-03-15 07:18] LABS: POTASSIUM 3.8 mmol/L (3.5-5.1)
[2023-03-15 07:24] LABS: CALCIUM 8.3 mg/dL (8.5-10.1)
[2023-03-15 07:25] LABS: BLOOD UREA NITROGEN 51.3 mg/dL (7-18); MAGNESIUM 2.6 mg/dL (1.8-2.4)
[2023-03-15 07:27] LABS: CREATININE 1.1 mg/dL (0.55-1.3)
[2023-03-15 07:30] LABS: BILIRUBIN,TOTAL 0.3 mg/dL (0.2-1)
[2023-03-15 07:41] LABS: ALBUMIN 2.2 g/dl (3.4-5.0)
[2023-03-15] MEDS ORDERED: SODIUM CHLORIDE 1,000 ML IV SCH (07:45)
[2023-03-15] MEDS: ALBUTEROL SO4 2.5/IPRATROPIUM 0.5 INH SOL 3 ML VIAL.NEB. NEB SCH ×4 (08:09→20:05)
[2023-03-15 08:42] LABS: ANISOCYTOSIS 0; MACROCYTOSIS 1+
[2023-03-15] MEDS: POLYETHYLENE GLYCOL (HEALTHYLAX) 3350 17 GM PACKET GT SCH ×2 (09:39→21:22)
[2023-03-15] MEDS: DOXYCYCLINE INJECTION 100 MG in DEXTROSE 5%-WATER 100 ML IVPB SCH ×2 (09:39→21:23)
[2023-03-15] MEDS: CHOLECALCIFEROL (VIT D3) 1,000 UNIT (25 MCG) TABLET GT SCH (09:40)
[2023-03-15] MEDS: PANTOPRAZOLE SODIUM 40 MG VIAL IVPUSH SCH (09:41)
[2023-03-15] MEDS ORDERED: SODIUM CHLORIDE 0.45%/POT 20 MEQ/1,000 ML INFUS.BAG IV SCH (12:15)
[2023-03-15] MEDS ORDERED: INSULIN (NOVOLOG) ASPART 100 UNITS/ML 10ML VIAL ONE ×2 (14:05→18:00)
[2023-03-15] MEDS: SODIUM CHLORIDE 0.45% 1,000 ML IV SCH (17:50)
[2023-03-15] MEDS: SENNOSIDES 8.8 MG/5 ML SYRUP GT SCH (21:22)
[2023-03-16] MEDS: methylPREDNISolone NA SUCC 40 MG/1 ML VIAL IVPUSH SCH ×2 (01:08→09:51)
[2023-03-16] MEDS: CEFEPIME 2 GM in DEXTROSE 5%-WATER 100 ML IVPB SCH ×3 (01:08→17:38)
[2023-03-16] MEDS: INSULIN SLIDING SCALE (NOVOLOG) 1 VIAL SQ SCH ×4 (06:20→21:36)
[2023-03-16] MEDS: ALBUTEROL SO4 2.5/IPRATROPIUM 0.5 INH SOL 3 ML VIAL.NEB. NEB SCH ×4 (08:21→21:00)
[2023-03-16] MEDS: DOXYCYCLINE INJECTION 100 MG in DEXTROSE 5%-WATER 100 ML IVPB SCH ×2 (09:47→21:15)
[2023-03-16] MEDS: POLYETHYLENE GLYCOL (HEALTHYLAX) 3350 17 GM PACKET GT SCH ×2 (09:51→21:15)
[2023-03-16] MEDS: CHOLECALCIFEROL (VIT D3) 1,000 UNIT (25 MCG) TABLET GT SCH (09:51)
[2023-03-16] MEDS: PANTOPRAZOLE SODIUM 40 MG VIAL IVPUSH SCH (09:53)
[2023-03-16] MEDS: COLLAGENASE CLOSTRIDIUM HIST. 30 GRAMS TUBE TP SCH (11:00)
[2023-03-16] MEDS ORDERED: VANCOMYCIN/WATER FOR INJ (PEG) 1,000 MG/200 ML BAG IVPB ONE (15:45)
[2023-03-16] MEDS ORDERED: INSULIN (NOVOLOG) ASPART 100 UNITS/ML 10ML VIAL ONE ×2 (17:31→21:32)
[2023-03-16] MEDS: SODIUM CHLORIDE 0.45% 1,000 ML IV SCH (17:42)
[2023-03-16 19:35] LABS: HEMATOCRIT 24.8 % (35.4-49); HEMOGLOBIN 8.3 GM/dL (11.7-16.9); MCH 32.9 pg (25.7-33.7); MCHC 33.7 g/dl (32.0-35.9); MEAN CELL VOLUME 97.7 fl (80-96); MEAN PLT VOLUME 8.8 fl (7.5-11.1); PLATELET COUNT 361 10^3/uL (134-434); RBC 2.53 M/mm3 (4.00-5.60); WHITE BLOOD COUNT 11.6 K/mm3 (4.0-10.0)
[2023-03-16 19:51] LABS: POTASSIUM 4.1 mmol/L (3.5-5.1)
[2023-03-16 19:54] LABS: BLOOD UREA NITROGEN 36.9 mg/dL (7-18); CALCIUM 8.5 mg/dL (8.5-10.1)
[2023-03-16 19:57] LABS: CREATININE 1.1 mg/dL (0.55-1.3)
[2023-03-16] MEDS: SENNOSIDES 8.8 MG/5 ML SYRUP GT SCH (21:15)
[2023-03-16 21:47] LABS: ANISOCYTOSIS 1+; MACROCYTOSIS 0; TOXIC GRANULATION 1+
[2023-03-17] MEDS: CEFEPIME 2 GM in DEXTROSE 5%-WATER 100 ML IVPB SCH ×3 (00:59→17:15)
[2023-03-17] MEDS: INSULIN SLIDING SCALE (NOVOLOG) 1 VIAL SQ SCH ×3 (05:58→17:14)
[2023-03-17 07:48] LABS: HEMATOCRIT 27.6 % (35.4-49); HEMOGLOBIN 9.2 GM/dL (11.7-16.9); MCH 33.2 pg (25.7-33.7); MCHC 33.3 g/dl (32.0-35.9); MEAN CELL VOLUME 99.9 fl (80-96); MEAN PLT VOLUME 8.6 fl (7.5-11.1); PLATELET COUNT 422 10^3/uL (134-434); RBC 2.76 M/mm3 (4.00-5.60); RDW 15.2 % (11.9-15.9); WHITE BLOOD COUNT 11.6 K/mm3 (4.0-10.0)
[2023-03-17 08:06] LABS: CALCIUM 8.7 mg/dL (8.5-10.1)
[2023-03-17 08:07] LABS: MAGNESIUM 2.4 mg/dL (1.8-2.4)
[2023-03-17 08:12] LABS: PHOSPHOROUS 2.4 mg/dL (2.5-4.9)
[2023-03-17] MEDS: ALBUTEROL SO4 2.5/IPRATROPIUM 0.5 INH SOL 3 ML VIAL.NEB. NEB SCH ×4 (09:26→20:40)
[2023-03-17] MEDS ORDERED: methylPREDNISolone NA SUCC 40 MG/1 ML VIAL IVPUSH SCH (10:00)
[2023-03-17 10:29] LABS: ANISOCYTOSIS 1+; MACROCYTOSIS 2+
[2023-03-17] MEDS: POLYETHYLENE GLYCOL (HEALTHYLAX) 3350 17 GM PACKET GT SCH ×2 (10:55→21:25)
[2023-03-17] MEDS: PANTOPRAZOLE SODIUM 40 MG VIAL IVPUSH SCH (10:55)
[2023-03-17] MEDS: DOXYCYCLINE INJECTION 100 MG in DEXTROSE 5%-WATER 100 ML IVPB SCH (10:55)
[2023-03-17] MEDS: CHOLECALCIFEROL (VIT D3) 1,000 UNIT (25 MCG) TABLET GT SCH (10:56)
[2023-03-17] MEDS: COLLAGENASE CLOSTRIDIUM HIST. 30 GRAMS TUBE TP SCH (10:56)
[2023-03-17] MEDS ORDERED: MIDAZOLAM HCL 5 MG/1 ML Single Dose Vial IVPUSH ONE (11:17)
[2023-03-17] MEDS ORDERED: INSULIN (NOVOLOG) ASPART 100 UNITS/ML 10ML VIAL ONE ×4 (14:43→17:19)
[2023-03-17] MEDS: SODIUM CHLORIDE 0.45% 1,000 ML IV SCH (19:43)
[2023-03-18] MEDS: SENNOSIDES 8.8 MG/5 ML SYRUP GT SCH ×2 (02:01→22:15)
[2023-03-18] MEDS: CEFEPIME 2 GM in DEXTROSE 5%-WATER 100 ML IVPB SCH ×3 (02:06→18:00)
[2023-03-18] MEDS: INSULIN SLIDING SCALE (NOVOLOG) 1 VIAL SQ SCH ×3 (06:32→16:31)
[2023-03-18] MEDS: ALBUTEROL SO4 2.5/IPRATROPIUM 0.5 INH SOL 3 ML VIAL.NEB. NEB SCH ×4 (08:31→20:31)
[2023-03-18] MEDS: PANTOPRAZOLE SODIUM 40 MG VIAL IVPUSH SCH (09:41)
[2023-03-18] MEDS: POLYETHYLENE GLYCOL (HEALTHYLAX) 3350 17 GM PACKET GT SCH ×2 (09:42→22:15)
[2023-03-18] MEDS: CHOLECALCIFEROL (VIT D3) 1,000 UNIT (25 MCG) TABLET GT SCH (09:42)
[2023-03-18] MEDS: COLLAGENASE CLOSTRIDIUM HIST. 30 GRAMS TUBE TP SCH (09:43)
[2023-03-18 10:34] LABS: HEMOGLOBIN 8.7 GM/dL (11.7-16.9); MCH 33.4 pg (25.7-33.7); MCHC 33.5 g/dl (32.0-35.9); MEAN CELL VOLUME 99.4 fl (80-96); PLATELET COUNT 385 10^3/uL (134-434); RBC 2.62 M/mm3 (4.00-5.60); RDW 14.4 % (11.9-15.9); WHITE BLOOD COUNT 11.5 K/mm3 (4.0-10.0)
[2023-03-18 10:53] LABS: POTASSIUM 3.6 mmol/L (3.5-5.1)
[2023-03-18 10:54] LABS: CALCIUM 8.6 mg/dL (8.5-10.1)
[2023-03-18 10:55] LABS: BLOOD UREA NITROGEN 24.1 mg/dL (7-18)
[2023-03-18 10:58] LABS: CREATININE 0.8 mg/dL (0.55-1.3); PHOSPHOROUS 2.2 mg/dL (2.5-4.9)
[2023-03-18] MEDS ORDERED: INSULIN (NOVOLOG) ASPART 100 UNITS/ML 10ML VIAL ONE (11:30)
[2023-03-18] MEDS ORDERED: NAPH,MB-DB/K PH,MBDB POWDER PACKET PEG ONE (16:47)
[2023-03-18] MEDS: HEPARIN NA (PORCINE) 5,000 UNITS/ML 1ML VIAL SQ SCH (22:15)
[2023-03-19] MEDS: CEFEPIME 2 GM in DEXTROSE 5%-WATER 100 ML IVPB SCH ×3 (00:59→18:57)
[2023-03-19] MEDS: SENNOSIDES 8.8 MG/5 ML SYRUP GT SCH ×2 (00:59→22:29)
[2023-03-19] MEDS: HEPARIN NA (PORCINE) 5,000 UNITS/ML 1ML VIAL SQ SCH ×3 (05:46→22:29)
[2023-03-19] MEDS: INSULIN SLIDING SCALE (NOVOLOG) 1 VIAL SQ SCH ×3 (06:07→20:04)
[2023-03-19 07:54] LABS: POTASSIUM 3.8 mmol/L (3.5-5.1)
[2023-03-19 07:56] LABS: ALBUMIN 2.3 g/dl (3.4-5.0); BLOOD UREA NITROGEN 19.9 mg/dL (7-18); CALCIUM 8.4 mg/dL (8.5-10.1); MAGNESIUM 2.1 mg/dL (1.8-2.4)
[2023-03-19 07:59] LABS: CREATININE 0.7 mg/dL (0.55-1.3); PHOSPHOROUS 2.6 mg/dL (2.5-4.9)
[2023-03-19 08:01] LABS: BILIRUBIN,TOTAL 0.4 mg/dL (0.2-1); TOT PROT 6.7 g/dl (6.4-8.2)
[2023-03-19] MEDS: ALBUTEROL SO4 2.5/IPRATROPIUM 0.5 INH SOL 3 ML VIAL.NEB. NEB SCH ×4 (08:25→20:21)
[2023-03-19] MEDS: POLYETHYLENE GLYCOL (HEALTHYLAX) 3350 17 GM PACKET GT SCH ×2 (10:37→22:29)
[2023-03-19] MEDS: CHOLECALCIFEROL (VIT D3) 1,000 UNIT (25 MCG) TABLET GT SCH (10:38)
[2023-03-19] MEDS: PANTOPRAZOLE SODIUM 40 MG VIAL IVPUSH SCH (10:38)
[2023-03-19] MEDS: COLLAGENASE CLOSTRIDIUM HIST. 30 GRAMS TUBE TP SCH (10:39)
[2023-03-19] MEDS ORDERED: INSULIN (NOVOLOG) ASPART 100 UNITS/ML 10ML VIAL ONE ×2 (20:00→20:54)
[2023-03-20] MEDS: CEFEPIME 2 GM in DEXTROSE 5%-WATER 100 ML IVPB SCH ×3 (01:31→17:53)
[2023-03-20] MEDS: HEPARIN NA (PORCINE) 5,000 UNITS/ML 1ML VIAL SQ SCH ×3 (06:16→21:12)
[2023-03-20] MEDS: INSULIN SLIDING SCALE (NOVOLOG) 1 VIAL SQ SCH ×2 (06:19→18:18)
[2023-03-20] MEDS: ALBUTEROL SO4 2.5/IPRATROPIUM 0.5 INH SOL 3 ML VIAL.NEB. NEB SCH ×4 (07:15→20:08)
[2023-03-20 08:07] LABS: HEMATOCRIT 25.6 % (35.4-49); HEMOGLOBIN 8.7 GM/dL (11.7-16.9); MCH 33.8 pg (25.7-33.7); MCHC 34.1 g/dl (32.0-35.9); MEAN CELL VOLUME 99.2 fl (80-96); MEAN PLT VOLUME 8.5 fl (7.5-11.1); PLATELET COUNT 374 10^3/uL (134-434); RBC 2.59 M/mm3 (4.00-5.60); RDW 14.3 % (11.9-15.9); WHITE BLOOD COUNT 11.1 K/mm3 (4.0-10.0)
[2023-03-20 08:18] LABS: POTASSIUM 3.9 mmol/L (3.5-5.1)
[2023-03-20 08:28] LABS: CALCIUM 8.1 mg/dL (8.5-10.1)
[2023-03-20 08:29] LABS: MAGNESIUM 2.4 mg/dL (1.8-2.4)
[2023-03-20 08:30] LABS: ALBUMIN 2.4 g/dl (3.4-5.0); BLOOD UREA NITROGEN 16.8 mg/dL (7-18)
[2023-03-20 08:32] LABS: CREATININE 0.8 mg/dL (0.55-1.3); PHOSPHOROUS 2.5 mg/dL (2.5-4.9)
[2023-03-20 08:34] LABS: BILIRUBIN,TOTAL 0.5 mg/dL (0.2-1); TOT PROT 7.1 g/dl (6.4-8.2)
[2023-03-20 09:13] LABS: ANISOCYTOSIS 1+
[2023-03-20] MEDS: PANTOPRAZOLE SODIUM 40 MG VIAL IVPUSH SCH (10:24)
[2023-03-20] MEDS: CHOLECALCIFEROL (VIT D3) 1,000 UNIT (25 MCG) TABLET GT SCH (10:25)
[2023-03-20] MEDS: POLYETHYLENE GLYCOL (HEALTHYLAX) 3350 17 GM PACKET GT SCH ×2 (10:25→21:13)
[2023-03-20] MEDS: COLLAGENASE CLOSTRIDIUM HIST. 30 GRAMS TUBE TP SCH (12:12)
[2023-03-20] MEDS: SENNOSIDES 8.8 MG/5 ML SYRUP GT SCH (21:13)
[2023-03-21] MEDS: CEFEPIME 2 GM in DEXTROSE 5%-WATER 100 ML IVPB SCH ×3 (01:00→17:00)
[2023-03-21] MEDS: HEPARIN NA (PORCINE) 5,000 UNITS/ML 1ML VIAL SQ SCH ×2 (06:23→14:00)
[2023-03-21] MEDS: INSULIN SLIDING SCALE (NOVOLOG) 1 VIAL SQ SCH ×3 (06:30→16:04)
[2023-03-21 07:41] LABS: HEMATOCRIT 25.6 % (35.4-49); HEMOGLOBIN 8.6 GM/dL (11.7-16.9); MCH 33.2 pg (25.7-33.7); MCHC 33.5 g/dl (32.0-35.9); MEAN CELL VOLUME 99.1 fl (80-96); MEAN PLT VOLUME 8.4 fl (7.5-11.1); PLATELET COUNT 376 10^3/uL (134-434); RBC 2.58 M/mm3 (4.00-5.60); RDW 14.2 % (11.9-15.9)
[2023-03-21 07:56] LABS: POTASSIUM 3.9 mmol/L (3.5-5.1)
[2023-03-21] MEDS: ALBUTEROL SO4 2.5/IPRATROPIUM 0.5 INH SOL 3 ML VIAL.NEB. NEB SCH ×4 (08:05→21:17)
[2023-03-21 08:08] LABS: CALCIUM 8.6 mg/dL (8.5-10.1)
[2023-03-21 08:09] LABS: ALBUMIN 2.4 g/dl (3.4-5.0); BLOOD UREA NITROGEN 16.9 mg/dL (7-18)
[2023-03-21 08:12] LABS: CREATININE 0.7 mg/dL (0.55-1.3)
[2023-03-21 08:13] LABS: BILIRUBIN,TOTAL 0.5 mg/dL (0.2-1); TOT PROT 7.1 g/dl (6.4-8.2)
[2023-03-21] MEDS: PANTOPRAZOLE SODIUM 40 MG VIAL IVPUSH SCH (09:00)
[2023-03-21] MEDS: COLLAGENASE CLOSTRIDIUM HIST. 30 GRAMS TUBE TP SCH (09:01)
[2023-03-21] MEDS: POLYETHYLENE GLYCOL (HEALTHYLAX) 3350 17 GM PACKET GT SCH (09:01)
[2023-03-21] MEDS: CHOLECALCIFEROL (VIT D3) 1,000 UNIT (25 MCG) TABLET GT SCH (09:01)
[2023-03-21 11:51] LABS: ANISOCYTOSIS 0; HELMET CELLS 0; HOWELL-JOLLY BODIES 0; MACROCYTOSIS 0; OVALOCYTE 0; PLATELET ESTIMATE NORMAL; ROULEAU 0; SICKELED CELLS 0; TARGET CELLS 0; TEAR DROP CELLS 0; TOXIC GRANULATION 0
[2023-03-21 19:40] VITALS: BP 104/64; PULSE 91; RESP 20; TEMP 98
== END 2023-03-21 21:16 | DRG 870 ==
LOC: JER 09:01 → JERBED 13:31 → J2W 14:52
PROVIDERS: ADMIT Internal Medicine; ATTEND Internal Medicine
PROC: 30233N1 Transfusion of Nonautologous Red Blood Cells into Peripheral Vein, Percutaneous Approach (ICD-10-PCS; principal; 2023-03-15)
PROC: 5A1955Z Respiratory Ventilation, Greater than 96 Consecutive Hours (ICD-10-PCS; 2023-03-15)
DX: A41.89 Other specified sepsis (principal); G93.41 Metabolic encephalopathy; L89.154 Pressure ulcer of sacral region, stage 4; J18.9 Pneumonia, unspecified organism; J96.22 Acute and chronic respiratory failure with hypercapnia; J96.21 Acute and chronic respiratory failure with hypoxia; R53.2 Functional quadriplegia; N17.9 Acute kidney failure, unspecified; J95.01 Hemorrhage from tracheostomy stoma; J44.1 Chronic obstructive pulmonary disease with (acute) exacerbation; E87.20 Acidosis, unspecified; G93.40 Encephalopathy, unspecified; I24.89 Other forms of acute ischemic heart disease; D62 Acute posthemorrhagic anemia; G93.89 Other specified disorders of brain; F03.90 Unspecified dementia, unspecified severity, without behavioral disturbance, psychotic disturbance, mood disturbance, and anxiety; G40.909 Epilepsy, unspecified, not intractable, without status epilepticus; I25.10 Atherosclerotic heart disease of native coronary artery without angina pectoris; E86.0 Dehydration; K21.9 Gastro-esophageal reflux disease without esophagitis; K59.00 Constipation, unspecified; E11.9 Type 2 diabetes mellitus without complications; K57.90 Diverticulosis of intestine, part unspecified, without perforation or abscess without bleeding; I69.391 Dysphagia following cerebral infarction; Z87.820 Personal history of traumatic brain injury; Z96.611 Presence of right artificial shoulder joint
CPT/HCPCS: 0241U-QW; 36415; 36430; 36600; 70450-TC; 71045-TC-FY; 71275-TC; 74174-TC; 80048; 80053; 81003; 82272; 82550; 82553; 82803; 82962; 83605; 83735; 84100; 84484; 85025; 85610; 85730; 86850; 86900; 86901; 86922; 87040; 87070; 87081; 87186; 87205; 87899; 93005; 93010; 94002; 94640; 99291; 99292; J1644; J3480; P9058

== ENCOUNTER 2023-07-11 11:15 | Inpatient (IN) | payer OTHER ==
[2023-07-11 13:14] LABS: EOS % 2.6 % (0-4.5); HEMATOCRIT 36.3 % (35.4-49); HEMOGLOBIN 12.6 GM/dL (11.7-16.9); LYMPH % 27.5 % (8-40); MCHC 34.8 g/dl (32.0-35.9); MEAN CELL VOLUME 100.5 fl (80-96); MEAN PLT VOLUME 7.8 fl (7.5-11.1); MONO % 6.4 % (3.8-10.2); NEUT % 62.5 % (42.8-82.8); PLATELET COUNT 298 10^3/uL (134-434); RBC 3.61 M/mm3 (4.00-5.60); RDW 13.4 % (11.9-15.9); WHITE BLOOD COUNT 6.5 K/mm3 (4.0-10.0)
[2023-07-11 13:43] LABS: MAGNESIUM 2.3 mg/dL (1.8-2.4)
[2023-07-11 13:48] LABS: POTASSIUM 3.7 mmol/L (3.5-5.1)
[2023-07-11 13:51] LABS: ALBUMIN 3.8 g/dl (3.4-5.0); BLOOD UREA NITROGEN 12.6 mg/dL (7-18); CALCIUM 9.4 mg/dL (8.5-10.1)
[2023-07-11 13:54] LABS: CREATININE 0.8 mg/dL (0.55-1.3)
[2023-07-11 13:56] LABS: BILIRUBIN,TOTAL 0.6 mg/dL (0.2-1)
[2023-07-11] MEDS ORDERED: CEFEPIME 2 GM/100 ML BAG IVPB ONE (16:16)
[2023-07-11] MEDS ORDERED: VANCOMYCIN 1 GRAM (PRE-DOCKED) 1,000 MG/250 ML BAG IVPB ONE (16:16)
[2023-07-11] MEDS: CEFEPIME HCL 2 GM VIAL (RESTRICTED TO ID) IVPB ONE (16:29)
[2023-07-11] MEDS: VANCOMYCIN 1,000 MG in DEXTROSE 5%-WATER - 250 ML IVPB ONE (17:11)
[2023-07-11] MEDS ORDERED: ALBUTEROL SO4 2.5/IPRATROPIUM 0.5 INH SOL 3 ML VIAL.NEB. NEB PRN (17:50)
[2023-07-11] MEDS: AMINO ACIDS 4.25%/D5W 1,000 ML IV SCH (20:25)
[2023-07-11] MEDS ORDERED: HEPARIN NA (PORCINE) 5,000 UNITS/ML 1ML VIAL ONE (21:25)
[2023-07-11] MEDS: HEPARIN NA (PORCINE) 5,000 UNITS/ML 1ML VIAL SQ SCH (21:29)
[2023-07-12] MEDS ORDERED: HEPARIN NA (PORCINE) 5,000 UNITS/ML 1ML VIAL ONE ×2 (08:29→21:49)
[2023-07-12] MEDS: SENNOSIDES 8.6MG TABLET (FP) PO SCH (08:34)
[2023-07-12] MEDS: SODIUM CHLORIDE 1 GM TABLET GT SCH (08:34)
[2023-07-12] MEDS: POLYETHYLENE GLYCOL (HEALTHYLAX) 3350 17 GM PACKET GT SCH ×2 (08:34→10:35)
[2023-07-12] MEDS: FAMOTIDINE 20 MG/2.5 ML ORAL LIQUID GT SCH (08:34)
[2023-07-12 08:41] LABS: POTASSIUM 3.4 mmol/L (3.5-5.1)
[2023-07-12 08:45] LABS: BASO % 1.2 % (0-2.0); EOS % 2.7 % (0-4.5); HEMATOCRIT 33.7 % (35.4-49); HEMOGLOBIN 11.6 GM/dL (11.7-16.9); LYMPH % 22.1 % (8-40); MCH 34.5 pg (25.7-33.7); MCHC 34.3 g/dl (32.0-35.9); MEAN CELL VOLUME 100.6 fl (80-96); MEAN PLT VOLUME 8.5 fl (7.5-11.1); MONO % 5.9 % (3.8-10.2); NEUT % 68.1 % (42.8-82.8); PLATELET COUNT 280 10^3/uL (134-434); RBC 3.35 M/mm3 (4.00-5.60); RDW 13.1 % (11.9-15.9); WHITE BLOOD COUNT 6.3 K/mm3 (4.0-10.0)
[2023-07-12 08:53] LABS: BLOOD UREA NITROGEN 18.9 mg/dL (7-18); CALCIUM 9.3 mg/dL (8.5-10.1)
[2023-07-12 08:57] LABS: CREATININE 0.8 mg/dL (0.55-1.3)
[2023-07-12] MEDS ORDERED: FUROSEMIDE 40 MG TABLET (FP) PO SCH (10:00)
[2023-07-12] MEDS: SENNOSIDES 8.8 MG/5 ML SYRUP GT SCH (10:35)
[2023-07-12] MEDS ORDERED: FUROSEMIDE 40 MG/4 ML INJECTABLE VIAL ONE (12:34)
[2023-07-12] MEDS: DOCUSATE NA 100 MG/10 ML UNIT-DOSE CUPS GT SCH (12:36)
[2023-07-12] MEDS: FUROSEMIDE 40 MG/4 ML INJECTABLE VIAL IVPUSH ONE (12:37)
[2023-07-12] MEDS: MINERAL OIL ENEMA 133 ML ENEMA RC ONE (13:45)
[2023-07-12] MEDS ORDERED: POLYETHYLENE GLYCOL (HEALTHYLAX) 3350 17 GM PACKET ONE ×2 (16:15→21:49)
[2023-07-12] MEDS ORDERED: CEFEPIME 1 GM/100 ML BAG IVPB ONE (17:10)
[2023-07-12] MEDS: CEFEPIME 1 GM in DEXTROSE 5%-WATER 100 ML IVPB SCH (17:15)
[2023-07-13] MEDS ORDERED: CEFEPIME 1 GM/100 ML BAG IVPB ONE ×2 (02:41→09:27)
[2023-07-13 07:54] LABS: BASO % 0.7 % (0-2.0); EOS % 2.5 % (0-4.5); HEMATOCRIT 28.5 % (35.4-49); HEMOGLOBIN 10.1 GM/dL (11.7-16.9); MCHC 35.3 g/dl (32.0-35.9); MEAN CELL VOLUME 98.9 fl (80-96); MEAN PLT VOLUME 8.4 fl (7.5-11.1); NEUT % 62.8 % (42.8-82.8); PLATELET COUNT 225 10^3/uL (134-434); RBC 2.88 M/mm3 (4.00-5.60); RDW 13.2 % (11.9-15.9); WHITE BLOOD COUNT 5.6 K/mm3 (4.0-10.0)
[2023-07-13 08:30] LABS: CHLORIDE 103 mmol/L (98-107); SODIUM 139 mmol/L (136-145)
[2023-07-13 08:36] LABS: ALBUMIN 3.4 g/dl (3.4-5.0); BLOOD UREA NITROGEN 18.7 mg/dL (7-18); CALCIUM 8.9 mg/dL (8.5-10.1); GLUCOSE,RANDOM 154 mg/dL (74-106)
[2023-07-13 08:37] LABS: CO2 29 mmol/L (21-32)
[2023-07-13 08:39] LABS: SGOT/AST 14 U/L (15-37); SGPT/ALT 13 U/L (13-61)
[2023-07-13 08:41] LABS: BILIRUBIN,TOTAL 0.5 mg/dL (0.2-1); TOT PROT 7.2 g/dl (6.4-8.2)
[2023-07-13 08:42] LABS: ALK PHOS 70 U/L (45-117)
[2023-07-13 08:53] LABS: ANION GAP 7 mmol/L (4-13); POTASSIUM 2.8 mmol/L (3.5-5.1)
[2023-07-13] MEDS ORDERED: POTASSIUM CHLORIDE ORAL LIQUID 20 MEQ/15 ML ONE ×2 (12:26→16:47)
[2023-07-13] MEDS: POTASSIUM CHLORIDE ORAL LIQUID 20 MEQ/15 ML PO ONE ×2 (12:54→16:48)
[2023-07-13] MEDS ORDERED: ALBUTEROL SO4 2.5/IPRATROPIUM 0.5 INH SOL 3 ML VIAL.NEB. NEB PRN (14:00)
[2023-07-14 11:09] LABS: BASO % 1.2 % (0-2.0); EOS % 3.7 % (0-4.5); HEMATOCRIT 29.7 % (35.4-49); MCHC 33.5 g/dl (32.0-35.9); MEAN CELL VOLUME 101.4 fl (80-96); MEAN PLT VOLUME 8.3 fl (7.5-11.1); MONO % 7.3 % (3.8-10.2); NEUT % 59.8 % (42.8-82.8); PLATELET COUNT 216 10^3/uL (134-434); RBC 2.93 M/mm3 (4.00-5.60); RDW 13.2 % (11.9-15.9); WHITE BLOOD COUNT 5.3 K/mm3 (4.0-10.0)
[2023-07-14 11:32] LABS: POTASSIUM 3.6 mmol/L (3.5-5.1)
[2023-07-14 11:39] LABS: CALCIUM 9.2 mg/dL (8.5-10.1)
[2023-07-14 11:40] LABS: ALBUMIN 3.3 g/dl (3.4-5.0); BLOOD UREA NITROGEN 15.3 mg/dL (7-18)
[2023-07-14 11:43] LABS: CREATININE 0.9 mg/dL (0.55-1.3)
[2023-07-14 11:44] LABS: TOT PROT 6.9 g/dl (6.4-8.2)
[2023-07-14 11:45] LABS: BILIRUBIN,TOTAL 0.5 mg/dL (0.2-1)
[2023-07-14 15:51] VITALS: BMI 20.9
[2023-07-15] MEDS: ASCORBIC ACID 500 MG/5 ML UNIT DOSE CUP GT SCH (10:10)
[2023-07-15] MEDS: AMINO ACIDS/PROTEIN HYDROLYS 30 ML LIQUID.PKT GT SCH (10:10)
[2023-07-15] MEDS: MULTIVIT-MINERALS ORAL LIQUID GT SCH (10:11)
[2023-07-16 22:31] VITALS: RESP 18
[2023-07-17 14:22] VITALS: PULSE 98
[2023-07-17 14:31] VITALS: BP 124/74; TEMP 98.5
== END 2023-07-17 18:07 | DRG 178 ==
LOC: JER 11:15 → JERBED 17:41 → J5S 07-13 17:30
PROVIDERS: ADMIT Internal Medicine
DX: J69.0 Pneumonitis due to inhalation of food and vomit (principal); G93.1 Anoxic brain damage, not elsewhere classified; J96.11 Chronic respiratory failure with hypoxia; F03.90 Unspecified dementia, unspecified severity, without behavioral disturbance, psychotic disturbance, mood disturbance, and anxiety; G40.909 Epilepsy, unspecified, not intractable, without status epilepticus; I10 Essential (primary) hypertension; E11.9 Type 2 diabetes mellitus without complications; I25.10 Atherosclerotic heart disease of native coronary artery without angina pectoris; K59.00 Constipation, unspecified; Z93.0 Tracheostomy status; K21.9 Gastro-esophageal reflux disease without esophagitis
CPT/HCPCS: 0241U-QW; 36415; 71045-TC-FY; 74177-TC; 80048; 80053; 82962; 83690; 83735; 84100; 85025; 87070; 87186; 87205; 93005; 93010; 99285-25; J1644; Q9967

== ENCOUNTER 2023-08-26 12:36 | Emergency (ER) | payer OTHER ==
[2023-08-26 12:51] VITALS: BMI 21.2
[2023-08-26 15:47] LABS: BASO % 0.2 % (0-2.0); EOS % 0.2 % (0-4.5); HEMATOCRIT 37.4 % (35.4-49); HEMOGLOBIN 12.8 GM/dL (11.7-16.9); LYMPH % 8.5 % (8-40); MCH 34.4 pg (25.7-33.7); MCHC 34.1 g/dl (32.0-35.9); MEAN CELL VOLUME 100.8 fl (80-96); MEAN PLT VOLUME 8.6 fl (7.5-11.1); MONO % 4.1 % (3.8-10.2); PLATELET COUNT 186 10^3/uL (134-434); RBC 3.71 M/mm3 (4.00-5.60); RDW 13.8 % (11.9-15.9); WHITE BLOOD COUNT 11.7 K/mm3 (4.0-10.0)
[2023-08-26 15:53] LABS: INR 1.08 (0.83-1.09); PROTHROMBIN TIME (PATIENT) 12.5 SEC (9.7-13.0)
[2023-08-26 15:56] LABS: ACTIVATED PTT 31.3 SECONDS (25.2-36.5)
[2023-08-26 15:58] LABS: CALCIUM 10.1 mg/dL (8.5-10.1)
[2023-08-26 15:59] LABS: ALBUMIN 4.3 g/dl (3.4-5.0); BLOOD UREA NITROGEN 45.3 mg/dL (7-18); MAGNESIUM 2.5 mg/dL (1.8-2.4)
[2023-08-26 16:02] LABS: CREATININE 1.1 mg/dL (0.55-1.3)
[2023-08-26 16:04] LABS: BILIRUBIN,TOTAL 0.9 mg/dL (0.2-1); TOT PROT 8.7 g/dl (6.4-8.2)
[2023-08-26 22:54] VITALS: BP 101/61; PULSE 74; RESP 19; TEMP 98.4
== END 2023-08-27 00:48 ==
LOC: JER 12:36
PROC: 0D20XUZ Change Feeding Device in Upper Intestinal Tract, External Approach (ICD-10-PCS; principal; 2023-08-26)
DX: S00.81XA Abrasion of other part of head, initial encounter (principal); K94.23 Gastrostomy malfunction; L89.151 Pressure ulcer of sacral region, stage 1; W19.XXXA Unspecified fall, initial encounter
CPT/HCPCS: 36415; 70450-TC; 71045-TC-FY; 72125-TC; 74018-TC-FY; 80053; 83735; 84484; 85025; 85610; 85730; 86850; 86900; 86901; 93005; 93010; 99285-25

== ENCOUNTER 2023-12-03 01:33 | Emergency (ER) | payer SELFPAY ==
[2023-12-03 01:49] VITALS: BMI 21.1
[2023-12-03 07:31] VITALS: BP 119/61; PULSE 80; RESP 17
[2023-12-03] MEDS ORDERED: INSULIN (LEVEMIR) 100 UNITS/ML UNITS SQ ONE (07:39)
[2023-12-03 08:02] VITALS: TEMP 98.1
== END 2023-12-03 10:39 | disposition home or self-care (01) ==
LOC: JER 01:33
DX: R11.10 Vomiting, unspecified (principal); W19.XXXA Unspecified fall, initial encounter
CPT/HCPCS: 70450-TC; 72125-TC; 93005; 93010; 99284-25

== ENCOUNTER 2025-03-09 17:15 | Inpatient (IN) | payer OTHER ==
[2025-03-09 17:58] LABS: ABSOLUTE IMMATURE GRANULOCYTES 0.07 x10^3/uL (0.0-0.031); BASOPHILS # 0.08 x10^3/uL (0.01-0.08); EOSINOPHIL % 1.3 % (0.8-7.0); EOSINOPHILS # 0.16 x10^3/uL (0.04-0.54); MCHC 33.0 g/dl (32.3-36.5); MEAN CELL VOLUME 102.1 fl (79.0-92.2); MEAN PLT VOLUME 10.9 fl (9.4-12.4); MONOCYTE # 0.71 x10^3/uL (0.30-0.82); MONOCYTE % 5.6 % (5.3-12.2); RDW 12.4 % (12.2-16.6)
[2025-03-09 18:05] LABS: INR 1.13 (0.83-1.09); PROTHROMBIN TIME (PATIENT) 12.3 SEC (9.7-13.0)
[2025-03-09 18:08] LABS: ACTIVATED PTT 32.3 SECONDS (25.2-36.5)
[2025-03-09] MEDS ORDERED: ONDANSETRON 4 MG/2 ML VIAL ONE (18:18)
[2025-03-09] MEDS ORDERED: PANTOPRAZOLE SODIUM 40 MG VIAL ONE (18:18)
[2025-03-09 18:25] LABS: GLUCOSE,RANDOM 114.0 mg/dL (74-106); TOT PROT 8.8 g/dl (6.4-8.2)
[2025-03-09 18:26] LABS: CO2 28.0 mmol/L (21-32)
[2025-03-09 18:28] LABS: ALK PHOS 142.0 U/L (40-150)
[2025-03-09 18:30] LABS: CREATININE 1.01 mg/dL (0.55-1.3); SGOT/AST 24.0 U/L (5-34); SGPT/ALT 19.0 U/L (0-55)
[2025-03-09] MEDS: PANTOPRAZOLE SODIUM 40 MG VIAL IVPUSH ONE (18:41)
[2025-03-09] MEDS: ONDANSETRON 4 MG/2 ML VIAL IVPUSH ONE ×2 (18:41)
[2025-03-09] MEDS ORDERED: ONDANSETRON 4 MG/2 ML VIAL IVPUSH PRN (20:00)
[2025-03-09 21:05] LABS: MCHC 32.8 g/dl (32.3-36.5); MEAN CELL VOLUME 102.5 fl (79.0-92.2); MEAN PLT VOLUME 11.2 fl (9.4-12.4); RDW 12.4 % (12.2-16.6)
[2025-03-10] MEDS: DEXTROSE 5%-0.45% SALINE 1,000 ML IV SCH (00:02)
[2025-03-10] MEDS ORDERED: ALBUTEROL SO4 2.5/IPRATROPIUM 0.5 INH SOL 3 ML VIAL.NEB. NEB PRN (00:56)
[2025-03-10] MEDS: SCOPOLAMINE HYDROBROMIDE 1 PATCH PATCH.TD72 TD SCH (01:27)
[2025-03-10] MEDS: SODIUM CHLORIDE 1 GM TABLET GT SCH (05:10)
[2025-03-10 08:39] LABS: ABSOLUTE IMMATURE GRANULOCYTES 0.04 x10^3/uL (0.0-0.031); BASOPHILS # 0.07 x10^3/uL (0.01-0.08); EOSINOPHIL % 1.2 % (0.8-7.0); EOSINOPHILS # 0.15 x10^3/uL (0.04-0.54); MCHC 32.2 g/dl (32.3-36.5); MEAN CELL VOLUME 101.5 fl (79.0-92.2); MEAN PLT VOLUME 11.3 fl (9.4-12.4); MONOCYTE # 0.78 x10^3/uL (0.30-0.82); MONOCYTE % 6.4 % (5.3-12.2); RDW 12.6 % (12.2-16.6)
[2025-03-10 09:23] LABS: GLUCOSE,RANDOM 130.0 mg/dL (74-106)
[2025-03-10 09:24] LABS: TOT PROT 7.7 g/dl (6.4-8.2)
[2025-03-10 09:25] LABS: CO2 25.0 mmol/L (21-32)
[2025-03-10 09:26] LABS: ALK PHOS 126.0 U/L (40-150)
[2025-03-10 09:29] LABS: CREATININE 1.12 mg/dL (0.55-1.3); SGOT/AST 17.0 U/L (5-34); SGPT/ALT 13.0 U/L (0-55)
[2025-03-10] MEDS: PANTOPRAZOLE SODIUM 40 MG VIAL IVPUSH SCH (10:01)
[2025-03-10] MEDS: SODIUM CHLORIDE 1,000 ML IV SCH (11:09)
[2025-03-11 09:14] LABS: ABSOLUTE IMMATURE GRANULOCYTES 0.03 x10^3/uL (0.0-0.031); BASOPHILS # 0.06 x10^3/uL (0.01-0.08); EOSINOPHIL % 1.9 % (0.8-7.0); EOSINOPHILS # 0.15 x10^3/uL (0.04-0.54); MCHC 32.8 g/dl (32.3-36.5); MEAN CELL VOLUME 101.4 fl (79.0-92.2); MEAN PLT VOLUME 11.6 fl (9.4-12.4); MONOCYTE # 0.51 x10^3/uL (0.30-0.82); MONOCYTE % 6.3 % (5.3-12.2); RDW 12.6 % (12.2-16.6)
[2025-03-11 09:25] LABS: INR 1.17 (0.83-1.09); PROTHROMBIN TIME (PATIENT) 12.7 SEC (9.7-13.0)
[2025-03-11 09:59] LABS: GLUCOSE,RANDOM 150.0 mg/dL (74-106); TOT PROT 6.9 g/dl (6.4-8.2)
[2025-03-11 10:00] LABS: CO2 24.0 mmol/L (21-32)
[2025-03-11 10:02] LABS: ALK PHOS 109.0 U/L (40-150)
[2025-03-11 10:04] LABS: SGPT/ALT 13.0 U/L (0-55)
[2025-03-11 10:05] LABS: CREATININE 0.97 mg/dL (0.55-1.3); SGOT/AST 17.0 U/L (5-34)
[2025-03-11] MEDS: POLYETHYLENE GLYCOL (HEALTHYLAX) 3350 17 GM PACKET PO SCH (10:50)
[2025-03-11 13:18] LABS: IRON SERUM 41.0 ug/dL (50-175)
[2025-03-11 15:41] VITALS: BMI 22.8
[2025-03-12] MEDS: SCOPOLAMINE HYDROBROMIDE 1 PATCH PATCH.TD72 TD SCH (08:14)
[2025-03-12] MEDS: BACITRACIN ZINC 15 GM TUBE TOPICAL OINTMENT TP SCH (12:40)
[2025-03-12 16:11] VITALS: RESP 18
[2025-03-13] MEDS: ENOXAPARIN NA (PORCINE) 40 MG/0.4 ML DISP.SYRIN SQ SCH (10:57)
[2025-03-13 11:43] VITALS: BP 146/74; PULSE 74; TEMP 98.7
== END 2025-03-13 16:37 | DRG 377 ==
LOC: JER 17:15 → JERBED 17:32 → J5S 23:05
PROVIDERS: ADMIT Hospitalist
DX: K92.2 Gastrointestinal hemorrhage, unspecified (principal); R53.2 Functional quadriplegia; J91.0 Malignant pleural effusion; F03.90 Unspecified dementia, unspecified severity, without behavioral disturbance, psychotic disturbance, mood disturbance, and anxiety; J44.9 Chronic obstructive pulmonary disease, unspecified; G40.909 Epilepsy, unspecified, not intractable, without status epilepticus; Z93.1 Gastrostomy status; E11.9 Type 2 diabetes mellitus without complications; Z87.820 Personal history of traumatic brain injury; D64.9 Anemia, unspecified; I25.10 Atherosclerotic heart disease of native coronary artery without angina pectoris; I69.391 Dysphagia following cerebral infarction; R13.10 Dysphagia, unspecified
CPT/HCPCS: 36415; 71045-TC-FY; 80053; 82728; 83540; 83550; 83735; 84100; 84466; 85025; 85027; 85610; 85730; 86850; 86900; 86901; 93005; 93010; 99285-25